=== PATIENT | female | born 1955 | race Caucasian/White ===

== ENCOUNTER 2017-07-24 14:29 | Inpatient (IN) | payer OTHER ==
[~2017-07-24] VITALS: Ht 162.6 cm; Wt 101.8 kg
--- NOTE | 2017-07-24 15:53 | RADIOLOGY REPORT ---
EXAMINATION: CR CHEST CLINICAL INFORMATION: Cough. Shortness of breath. Finished antibiotic treatment. COMPARISON: Chest x-ray dated 08/12/2010. TECHNIQUE: 2 views of the chest were obtained. FINDINGS: The cardiac silhouette is within normal limits in size. The chloe bilaterally appear prominent with thickening of the central airways and streaky perihilar opacities seen, suggestive of reactive airways disease or bronchitis. No focal dense consolidation, effusion or pneumothorax is seen. Moderate size retrocardiac hiatal hernia is noted. Bony structures are unremarkable. IMPRESSION: 1. Findings are consistent with reactive airways disease or bronchitis. No focal pneumonia. 2. Moderate size retrocardiac hiatal hernia.
--- NOTE | 2017-07-24 16:57 | ED DYSPNEA/ASTHMA COMPLAINT ---
History of Present Illness General Chief Complaint: General Adult Stated Complaint: SOB Source: patient Exam Limitations: no limitations Vital Signs & Intake/Output Vital Signs & Intake/Output Vital Signs Date Time Temp Pulse Resp B/P B/P Pulse O2 O2 Flow FiO2 Mean Ox Delivery Rate 07/24 2058 98.6 115 20 117/67 97 Nasal 2.0L Cannula 07/24 1955 99.6 115 20 96/56 95 Nasal 2.0L Cannula 07/24 1823 99.4 120 24 110/70 94 Room Air 07/24 1727 95 Room Air 07/24 1712 98.4 125 20 107/67 94 Room Air 07/24 1434 99.9 123 20 123/80 95 Room Air Allergies Coded Allergies: Penicillins (RASH 07/24/17) Triage Note: PT TO ED C/O WORSENING SOB, URI S/S X 1 MONTH. STATES HAD BRONCHITIS AND WAS ON Z-CHERI. H/O ASTHMA, BEEN USING INHALERS AND NEBS. RA SATS 95%. Triage Nurses Notes Reviewed? yes Onset: Abrupt Duration: week(s): (4), constant, continues in ED, getting worse Timing: multiple episodes today Severity: moderate, severe Activities at Onset: activity Prior Episodes/Possible Cause: no prior episodes Modifying Factors: Worsens With: movement. Associated Symptoms: cough, wheezing LMP (ages 10-50): post menopausal, unknown : No Patient currently breastfeeds: No HPI: 61-year-old female past medical history of asthma presents for evaluation of cough, shortness of breath and wheezing. Patient states that symptoms started about one month ago and been intermittent. She states that she was treated with antibiotic steroids and albuterol without much improvement. Patient reports that symptoms get worse with exertion and improves with rest. She also reports dizziness and lightheadedness on exertion. No syncope no hemoptysis. She does report some intermittent lower extremity edema but no recent surgery recent trauma. No history of blood clots. No fevers. She states that initially she was improving on steroids but her symptoms returned. She denies any chest pain nausea vomiting diarrhea or abdominal pain. (Babak Nina) Past History Travel History Traveled to [place] past 21 day No Medical History Any Pertinent Medical History? see below for history Respiratory: asthma Surgical History Surgical History: non-contributory Psychosocial History What is your primary language Maltese Tobacco Use: Never used ETOH Use: denies use Illicit Drug Use: denies illicit drug use Family History Hx Contributory? No (Babak Nina) Review of Systems Review of Systems Constitutional: Reports: no symptoms. EENTM: Reports: no symptoms. Respiratory: Reports: see HPI, cough, short of breath, wheezing. Cardiovascular: Reports: no symptoms. GI: Reports: no symptoms. Genitourinary: Reports: no symptoms. Musculoskeletal: Reports: no symptoms. Skin: Reports: no symptoms. Neurological/Psychological: Reports: see HPI (DIZZY). Hematologic/Endocrine: Reports: no symptoms. Immunologic/Allergic: Reports: no symptoms. All Other Systems: Reviewed and Negative (Babak Nina) Physical Exam Physical Exam General Appearance: well developed/nourished, no apparent distress, alert, awake Head: atraumatic, normal appearance Eyes: Bilateral: normal appearance, PERRL, EOMI. Ears, Nose, Throat: normal pharynx, normal ENT inspection, hearing grossly normal Neck: normal inspection, supple, full range of motion, NO jvd Respiratory: chest non-tender, no respiratory distress, rhonchi, wheezing Peripheral Pulses: 2+ radial (R), 2+ radial (L) Gastrointestinal: soft, non-tender Rectal: normal exam, normal rectal tone, heme negative stool Extremities: normal range of motion, THE LEFT LOWER EXTREMITY APPEARS SLIGHTLY SWOLLEN COMPARED TO THE RIGHT TENDERNESS OR REDNESS Neurologic/Psych: no motor/sensory deficits, awake, alert, oriented x 3 Skin: intact, normal color, warm/dry Lymphatic: no anterior cervical sera Comments: Rectal exam heme negative stool Core Measures ACS in differential dx? No CVA/TIA Diagnosis No Sepsis Present: No Sepsis Focused Exam Completed? No (Babak Nina) Progress Differential Diagnosis: asthma, AMI, bronchitis, costochondritis, CHF, COPD, musculoskeletal pain, pericarditis, pulmonary embolism, pneumonia, unstable angina Plan of Care: Orders Procedure Date/time Status Heart Healthy Diet 07/25 B Active TROPONIN LEVEL 07/25 0600 Active EKG 07/25 0600 Active TROPONIN LEVEL 07/25 0005 Active EKG 07/25 0005 Active US-EXT BILAT VENOUS DOPPLER 07/24 2045 Active Pathway - chart 07/24 2045 Active House Staff 07/24 2045 Active Patient Data 07/24 2045 Active ED Holding Orders 07/24 2038 Active Admit to inpatient 07/24 2038 Active Vital Signs 07/24 2038 Active Code Status 07/24 2038 Active Patient Data 07/24 2034 Active Add-on Test (ER Only) 07/24 1915 Active EKG 07/24 1915 Active RAPID VIRAL INFLUENZA A 07/24 1741 Complete TROPONIN LEVEL 07/24 1724 Complete PARTIAL THROMBOPLASTIN TIME 07/24 1724 Complete PROTHROMBIN TIME 07/24 1724 Complete B-TYPE NATRIURETIC PEP (BNP) 07/24 1724 Complete D-DIMER 07/24 171 Complete COMPREHENSIVE METABOLIC PANEL 07/24 171 Complete CBC WITHOUT DIFFERENTIAL 07/24 171 Complete VTE Mechanical Prophylaxis 07/24 UNK Active Current Medications Sig/José Miguel Start time Last Medication Dose Stop Time Status Admin Heparin Sodium 25,000 UNIT Q24H 07/24 2014 UNVr 07/24 (Porcine) 2047 (Heparin) Sodium Chloride 500 ML Sodium Chloride 1,000 ML BOLUS ONE 07/24 2014 AC 07/24 (Normal Saline 0.9%) 07/24 Laboratory Tests 07/24/17 1724: Anion Gap 17 H, Estimated GFR > 60, BUN/Creatinine Ratio 10.0, Glucose 126 H, Calcium 9.0, Total Bilirubin 0.5, AST 37 H, ALT 35, Alkaline Phosphatase 86, Troponin I 0.05, Rah-S-Smtgzdmfcxg Pept 4740 H, Total Protein 6.7, Albumin 3.5, Globulin 3.2, Albumin/Globulin Ratio 1.1, PT 16.2 H, INR 1.55 H, APTT 39 H, D -Dimer High Sensitivty 1916 H, CBC w Diff MAN DIFF ORDERED, RBC 4.39, MCV 72.2 L, MCH 22.0 L, MCHC 30.4 L, RDW 17.9 H, MPV 8.6, Gran % 74.0, Lymphocytes % 16.7 L, Monocytes % 8.0, Eosinophils % 0.4, Basophils % 0.9, Absolute Granulocytes 17.7 H, Segmented Neutrophils 68, Band Neutrophils 3, Absolute Lymphocytes 4.0 H, Lymphocytes 22, Monocytes 7, Absolute Monocytes 1.9 H, Absolute Eosinophils 0.1, Absolute Basophils 0.2, Nucleated RBCs 1 H, Platelet Estimate ADEQUATE, Hypochromic-Microcytic 1+, Anisocytosis 1+, Microcytic Cells 1+ Microbiology 07/24 1745 NASOPHARYN: Influenza Virus A & B Rapid Smear - COMP Patient seen and evaluated. She is diffuse wheezing and rhonchi auscultated bilaterally. She was given a DuoNeb and reports feeling better. Chest x-ray is clear. Patient has persistent tachycardia here and is satting at 94 on room air at rest. We'll check basic labs including a d-dimer. She was given a liter normal saline. D-dimer is definitely elevated. CTA ordered. CTA is positive for bilateral pulmonary emboli and possible pulmonary infarct. EKG BNP and troponin ordered. Patient also appears to have slightly swollen left lower extremity when compared to the right. Ultrasound ordered for the morning. Patient will require admission. Heparin bolus and drip ordered. Patient's blood pressure is 96/50 and she remains tachycardic. A second fluid bolus was ordered. She is mentating well. Patient will be admitted to the ICU overnight. Case discussed with Dr. Baltazar she agrees (Tre BULLARD,Babak) 07/24/2017 8:46:55 PM Patient seen and examined at bedside with family. Heart rate 117, blood pressure 96/50. Patient states she's been sick on and off since with diagnosis of asthma and bronchitis status post multiple courses of antibiotics. However in the last several weeks to months she has felt weaker. In the last 2 weeks she has not done much for herself because she feels lightheaded and dizzy when she stands up. No syncope. (Delaney CARLOS,[facility]) Diagnostic Imaging: Viewed by Me: Radiology Read, CT Scan. Discussed w/RAD: Radiology Read, CT Scan. Radiology Impression: PATIENT: EKTA BATES PRESENT AGE: 61 PATIENT ACCOUNT NO: [id number] : 56 LOCATION: [facility] ORDERING PHYSICIAN: Babak BULLARD SERVICE DATE: 07/24/17 EXAM TYPE: CAT - CTA CHEST-PULMONARY EMBOLISM EXAMINATION: CT ANGIOGRAM CHEST WITH AND WITHOUT CONTRAST (CT PULMONARY ANGIOGRAM FOR PE) CLINICAL INFORMATION: Cough. Shortness of breath, dizziness. COMPARISON: Chest radiography earlier today. TECHNIQUE: Prior to contrast administration, noncontrast localization images were obtained. Subsequently, multidetector volumetric imaging was performed from the thoracic inlet to below the diaphragms following the administration of 72 mL Optiray 350 intravenous contrast. No contrast reaction reported. Sagittal, coronal, and MIP oblique sagittal reformatted images were obtained on the CT workstation, uploaded to PACS, and reviewed. Total exam dose-length product 585 mGy-cm. FINDINGS: QUALITY OF STUDY/CONTRAST BOLUS: Satisfactory PULMONARY ARTERIES: Bilateral pulmonary emboli are demonstrated involving each lobe, worst in the bilateral lower lobes. Borderline ectasia of the main pulmonary artery. THORACIC AORTA: No aneurysm or dissection. LUNG: There is a 1.3 cm right upper lobe nodule on axial image 191/518 within internal air bronchogram. Small peripheral subpleural opacities which are [id number] in the right middle lobe and right lower lobe. PLEURA: No pleural effusion or pneumothorax. MEDIASTINUM: The trachea and central airways are patent. No mediastinal adenopathy. Suspect minimal coronary artery calcification. Moderate hiatal hernia. CHEST WALL/AXILLA : No axillary or internal mammary lymphadenopathy. OSSEOUS STRUCTURES: No acute or suspicious osseous abnormality. UPPER ABDOMEN: No acute pulmonary pathology. IMPRESSION: 1. Multifocal bilateral pulmonary embolism. 2. A nonspecific 1.3 cm right upper lobe nodule. Recommend 3 month follow-up chest CT scan for re- evaluation. 3. Hav-[id number] subpleural small opacities in the right middle and lower lobes could represent atelectasis or pulmonary infarct. VTE: Positive. This critical result was discussed with Babak Toledo at 7:15 PM on 07/24/2017 and it was ascertained that the content and urgency of the report was understood at the time of direct communication. DICTATED BY: Jose Thomas MD DATE/TIME DICTATED:07/24/171913 BIOMETRIC SCREENER:DUYEN DATE/TIME TRANSCRIBED:1913 CONFIDENTIAL, DO NOT COPY WITHOUT APPROPRIATE AUTHORIZATION. CXR Impression: PATIENT: EKTA BATES PRESENT AGE: 61 PATIENT ACCOUNT NO: [id number] : 56 LOCATION: [facility] ORDERING PHYSICIAN: Bora Leyva DO SERVICE DATE: 07/24/17 EXAM TYPE: RAD - XRY-CHEST XRAY, TWO VIEWS EXAMINATION: CR CHEST CLINICAL INFORMATION: Cough. Shortness of breath. Finished antibiotic treatment. COMPARISON: Chest x-ray dated 08/12/2010. TECHNIQUE: 2 views of the chest were obtained. FINDINGS: The cardiac silhouette is within normal limits in size. The chloe bilaterally appear prominent with thickening of the central airways and streaky perihilar opacities seen, suggestive of reactive airways disease or bronchitis. No focal dense consolidation, effusion or pneumothorax is seen. Moderate size retrocardiac hiatal hernia is noted. Bony structures are unremarkable. IMPRESSION: 1. Findings are consistent with reactive airways disease or bronchitis. No focal pneumonia. 2. Moderate size retrocardiac hiatal hernia. DICTATED BY: Maxine Goel MD DATE/TIME DICTATED:07/24/171546 BIOMETRIC SCREENER:DUYEN DATE/ TIME TRANSCRIBED:07/24/171546 Initial ED EKG: sinus tachycardia, left axis deviation, borderline R-wave progression anteriorly, borderline T-wave abnormalities (Babak Nina) Departure Departure Condition: Stable Referrals: Vahid Stock DO (PCP/Family) Departure Forms: Customer Survey General Discharge Information Admission Note Spoke With: Arjun Briseno MD Documentation of Exam: Documentation of any treatments & extenuating circumstances including Concerns Regarding Discharge (functional status, medication knowledge or non-compliance, living conditions, etc.) that warrant an admission rather than observation: [ Pulmonology consult, IV heparin, IV fluids, telemetry monitoring, echocardiogram , hypercoagulability workup, serial labs, serial EKGs] (Babak Nina) Departure Disposition: STILL A PATIENT Clinical Impression Primary Impression: Pulmonary embolism PA/[employer]ICE [employer]IDENT [employer] Co-Sign Statement Statement: ED Attending supervision documentation- [X] I saw and evaluated the patient. I have also reviewed all the pertinent lab results and diagnostic results. I agree with the findings and the plan of care as documented in the PA's/[employer]ICE [employer]'s documentation. [X] I have reviewed the ED Record and agree with the PA's/[employer]'s documentation. [] Additions or exceptions (if any) to the PAs/[employer]'s note and plan are summarized below: [] (Delaney CARLOS,[place]) Critical Care Note Critical Care Note Critical Care Time: 30-74 min (Babak Nina)
[2017-07-24 17:30] LABS: ABSOLUTE BASOPHIL COUNT 0.2 /CUMM (0.0-0.2); ABSOLUTE EOSINOPHIL COUNT 0.1 /CUMM (0.0-0.7); ABSOLUTE GRANULOCYTE CT 17.7 /CUMM (1.4-6.5); ABSOLUTE MONOCYTE COUNT 1.9 /CUMM (0.10-0.60); BASOPHIL % 0.9 % (0.0-2.0); EOSINOPHIL % 0.4 % (0-5); HEMATOCRIT 31.7 % (37-47); MEAN CORPUSCULAR HGB CONC 30.4 G/DL (33.0-37.0); MEAN CORPUSCULAR VOLUME 72.2 FL (81.0-99.0); MEAN PLATELET VOLUME 8.6 FL (7.4-10.4); PLATELET COUNT 366 /CUMM (130-400); RBC DISTRIBUTION WIDTH 17.9 % (11.5-14.5); RED BLOOD CELL CT 4.39 /CUMM (4.20-5.40)
[2017-07-24 19:29] LABS: PT 16.2 SEC (9.4-12.5); PTT 39 SEC (25-37)
--- NOTE | 2017-07-24 19:29 | CT SCAN REPORT ---
EXAMINATION: CT ANGIOGRAM CHEST WITH AND WITHOUT CONTRAST (CT PULMONARY ANGIOGRAM FOR PE) CLINICAL INFORMATION: Cough. Shortness of breath, dizziness. COMPARISON: Chest radiography earlier today. TECHNIQUE: Prior to contrast administration, noncontrast localization images were obtained. Subsequently, multidetector volumetric imaging was performed from the thoracic inlet to below the diaphragms following the administration of 72 mL Optiray 350 intravenous contrast. No contrast reaction reported. Sagittal, coronal, and MIP oblique sagittal reformatted images were obtained on the CT workstation, uploaded to PACS, and reviewed. Total exam dose-length product 585 mGy-cm. FINDINGS: QUALITY OF STUDY/CONTRAST BOLUS: Satisfactory PULMONARY ARTERIES: Bilateral pulmonary emboli are demonstrated involving each lobe, worst in the bilateral lower lobes. Borderline ectasia of the main pulmonary artery. THORACIC AORTA: No aneurysm or dissection. LUNG: There is a 1.3 cm right upper lobe nodule on axial image 191/518 within internal air bronchogram. Small peripheral subpleural opacities which are [id number] in the right middle lobe and right lower lobe. PLEURA: No pleural effusion or pneumothorax. MEDIASTINUM: The trachea and central airways are patent. No mediastinal adenopathy. Suspect minimal coronary artery calcification. Moderate hiatal hernia. CHEST WALL/AXILLA: No axillary or internal mammary lymphadenopathy. OSSEOUS STRUCTURES: No acute or suspicious osseous abnormality. UPPER ABDOMEN: No acute pulmonary pathology. IMPRESSION: 1. Multifocal bilateral pulmonary embolism. 2. A nonspecific 1.3 cm right upper lobe nodule. Recommend 3 month follow-up chest CT scan for re-evaluation. 3. Nxf-mekz-[id number] subpleural small opacities in the right middle and lower lobes could represent atelectasis or pulmonary infarct. VTE: Positive. This critical result was discussed with Babak Toledo at 7:15 PM on 07/24/2017 and it was ascertained that the content and urgency of the report was understood at the time of direct communication.
--- NOTE | 2017-07-24 20:41 | History & Physical ---
Kendall Vance MD 07/24/172039: General Information and HPI MD Statement: I have seen and personally examined EKTA BATES and documented this H&P. The patient is a 61 year old F who presented with a patient stated chief complaint of [shortness of breath, cough]. Source of Information: patient, family Exam Limitations: no limitations History of Present Illness: Patient is a 61-year-old female with a PMH of asthma and psoriasis who presents complaining of cough and shortness of breath. Patient states she has had a cough for approximately one month, she was given prednisone taper and azithromycin which initially improved her symptoms however she then progressively got worse. 4-5 days ago she began experiencing significant weakness to the point that she can no longer get out of bed and worsening shortness of breath.. Denies any associated fever, chills, nausea, vomiting. She notes that she has also had leg swelling and pain left greater than right. Her daughter who is a nurse states that she has also had an elevated heart rate and low BP. Patient denies any chest pain, palpitations, lightheadedness, dizziness, loss of consciousness. Allergies/Medications Allergies: Coded Allergies: Penicillins (RASH 07/24/17) Home Med list Cetirizine HCl (Zyrtec) 10 MG TABLET 1 TAB PO DAILY allergy (Reported) Fluticasone/Salmeterol (Advair 250-50 Diskus) 250 MCG-50 MCG/DOSE BLST.W.DEV 1 PUF INH BID asthma (Reported) Ipratropium [place] 0.2 MG/ML (0.02 %) SOLUTION 1 Vial INH/JANEE 4 TIMES/DAY asthma (Reported) Ipratropium/Albuterol Sulfate (Iprat-Albut 0.5-3(2.5) MG/3 Ml) 0.5 MG-3 MG (2.5 MG BASE)/3 ML AMPUL.NEB ASTHMA (Reported) Omeprazole 20 MG TABLET.DR 1 TAB PO DAILY gerd (Reported) Past History Travel History Traveled to [place] past 21 day No Medical History Respiratory: asthma Other Medical Hx: psoriasis Surgical History Surgical History: non-contributory Past Family/Social History Family History Relations & Conditions if any Relation not specified for: *No pertinent family history Psychosocial History Smoking Status: Never Smoked ETOH Use: denies use Illicit Drug Use: denies illicit drug use Review of Systems Review of Systems Constitutional: Reports: malaise, weakness. Denies: chills, diaphoresis, fever. EENTM: Reports: no symptoms. Cardiovascular: Reports: peripheral edema. Denies: chest pain, orthopena, syncope. Respiratory: Reports: cough, short of breath, wheezing. Denies: hemoptysis, orthopnea, sputum production. GI: Reports: no symptoms. Genitourinary: Reports: no symptoms. Musculoskeletal: Reports: no symptoms. Skin: Reports: rash (psoriatic). Neurological/Psychological: Reports: no symptoms. Exam & Diagnostic Data Last 24 Hrs of Vital Signs/I&O Vital Signs Date Time Temp Pulse Resp B/P B/P Pulse O2 O2 Flow FiO2 Mean Ox Delivery Rate 07/24 195 99.6 115 20 96/56 95 Nasal 2.0L Cannula 07/24 1823 99.4 120 24 110/70 94 Room Air 07/24 1727 95 Room Air 07/24 1712 98.4 125 20 107/67 94 Room Air 07/24 1434 99.9 123 20 123/80 95 Room Air Intake & Output 07/24 1600 07/24 0800 07/24 0000 Intake Total Output Total Balance Patient 200 lb Weight Weight Estimated Measurement Method Physical Exam General Appearance Alert, Oriented X3, Cooperative, No Acute Distress Skin Temp/Moisture Exam: Warm/Dry Sepsis Skin Exam (color): Normal for Ethnicity HEENT Atraumatic, PERRLA, EOMI, Mucous Membr. moist/pink Neck Supple, No JVD, No thryomegaly Cardiovascular Regular Rate, Normal S1, Normal S2 Lungs diminished breath sounds, scant wheezing, mild respiratory distress Abdomen Normal Bowel Sounds, Soft, No Tenderness Neurological Normal Speech, Strength at 5/5 X4 Ext, Normal Tone, Sensation Intact, Cranial Nerves 3-12 NL Extremities 2-3+ pitting edema of the LEs L<R Vascular Pulses Symmetrical Sepsis Peripheral Pulse Location: Posterior Tibialis Sepsis Peripheral Pulse Exam: Normal Sepsis Cap Refill Exam: <2 Sec Last 24 Hrs of Labs/Doug: Laboratory Tests 07/24/17 1724: Anion Gap 17 H, Estimated GFR > 60, BUN/Creatinine Ratio 10.0, Glucose 126 H, Calcium 9.0, Total Bilirubin 0.5, AST 37 H, ALT 35, Alkaline Phosphatase 86, Troponin I 0.05, Cxt-V-Jroyenmhedv Pept 4740 H, Total Protein 6.7, Albumin 3.5, Globulin 3.2, Albumin/Globulin Ratio 1.1, PT 16.2 H, INR 1.55 H, APTT 39 H, D -Dimer High Sensitivty 1916 H, CBC w Diff MAN DIFF ORDERED, RBC 4.39, MCV 72.2 L, MCH 22.0 L, MCHC 30.4 L, RDW 17.9 H, MPV 8.6, Gran % 74.0, Lymphocytes % 16.7 L, Monocytes % 8.0, Eosinophils % 0.4, Basophils % 0.9, Absolute Granulocytes 17.7 H, Segmented Neutrophils 68, Band Neutrophils 3, Absolute Lymphocytes 4.0 H, Lymphocytes 22, Monocytes 7, Absolute Monocytes 1.9 H, Absolute Eosinophils 0.1, Absolute Basophils 0.2, Nucleated RBCs 1 H, Platelet Estimate ADEQUATE, Hypochromic-Microcytic 1+, Anisocytosis 1+, Microcytic Cells 1+ Microbiology 07/24 1746 NASOPHARYN: Influenza Virus A & B Rapid Smear - COMP Diagnostic Data EKG Results sinus tachycardia CXR Results 1. Findings are consistent with reactive airways disease or bronchitis. No focal pneumonia. 2. Moderate size retrocardiac hiatal hernia. Other Results CTA CHEST 1. Multifocal bilateral pulmonary embolism. 2. A nonspecific 1.3 cm right upper lobe nodule. Recommend 3 month follow-up chest CT scan for re-evaluation. 3. Zpt-arcq-[id number] subpleural small opacities in the right middle and lower lobes could represent atelectasis or pulmonary infarct. VTE: Positive. Assessment/Plan Assessment: Patient is a 61-year-old female with a PMH of asthma and psoriasis who presents complaining of cough and shortness of breath. Patient's cough had progressed over the course of one month initially improving with azithromycin and prednisone. She began to have progressive shortness of breath and weakness to the point of immobility for the past 4-5 days. She has associated lower extremity swelling and pain left greater than right. Problem list #Bilateral PE #Asthma exacerbation #Incidental pulmonary nodule should be followed up as an outpatient Plan -Admit to ICU -Continuous telemetry monitoring -Echocardiogram to assess for any heart strain - Lower Extremity Doppler ultrasound -IV heparin - Pulmonology consult -TRC/nebs -IV Solu-Medrol 40 mg twice a day -IV azithromycin -Mucinex -DVT prophylaxis IV heparin -CODE STATUS: full code As Ranked By This Provider Problem List: 1. Pulmonary embolism Core Measures/Misc (03/07) Acute Coronary Syndrome ACS Diagnosis: No Congestive Heart Failure Congestive Heart Failure Diagnosis No Cerebrovascular Accident CVA/TIA Diagnosis: No VTE (View Protocol) VTE Risk Factors VTE (Previous) No Mechanical VTE Prophylaxis d/t N/A MechProphylax Ordered No VTE Pharm Prophylaxis d/t NA PharmProphylax ordered Sepsis (View protocol) Sepsis Present: No Arjun Briseno 07/25/17 0421: Attending MD Review Statement Attending Statement Attending MD Statement: examined this patient, discuss w/resident/PA/COLLECT ON DELIVERY CLERK, agreed w/resident/PA/COLLECT ON DELIVERY CLERK, reviewed EMR data (avail), reviewed images, amended to note Attending Assessment/Plan: CC: Worsening shortness of breath PMH: Asthma, psoriasis Patient came to ER for worsening shortness of breath. Patient developed cough 1 month back with upper respiratory symptoms, malaise lethargy, no fever or chills associated with shortness of breath. She went to urgent care where she was treated for bronchitis with oral antibiotics and steroids, she transiently improved. Again symptoms started to worsen around 2 weeks back when she had more cough, without sputum production, postnasal drip, weakness, shortness of breath to the extent that she could not do much and was mostly on the bed. She had an episode of nausea vomiting and diarrhea for 1 day duration which is resolved on its own. A couple of times she noticed nosebleed but no sputum production or hemoptysis. 4-5 days back patient's daughter started to notice worsening of her lower extremity swelling, increased heart rate, lower side blood pressure. Patient's daughter suggested her to go to hospital but patient refused. Progressively her breathing was worse, she was getting leg cramps and she was getting wheezing so she came to ER. She denies any fever, chills, currently any diarrhea, vomiting, urinary symptoms, chest pain, chest tightness, back pain, abdominal pain, presyncopal symptoms or LOC. Patient denies any chronic weight loss, poor appetite, night sweats or any lumps or bumps. Vitals: T max 99.9, heart rate 123, RR 20, blood pressure 123/80 on arrival dropped to 96/56, saturating 95% on 2 L nasal cannula. On exam: Patient in mild respiratory distress, A O 3, cooperative, neck supple, JVD normal, no lymphadenopathy, mucosa moist, no focal neurological deficit, bilateral lower extremity edema +2, no obvious skin rashes or inflammation CVS: S1-S2, RRR. RS: Minimum Wheezing bilaterally, no crackles. Abdomen: Soft, NT, ND , bowel sounds present. Labs: WBC 24.0, hemoglobin 9.6, hematocrit 31.7, platelet 366, sodium 142, potassium 3.4, chloride 97, bicarbonate 28, BUN 8, creatinine 0.8, glucose 126, calcium 9.0, LFT unremarkable, troponin 0.05, proBNP 4740, INR 1.55, d-dimer 1916, influenza negative CXR: 1. Findings are consistent with reactive airways disease or bronchitis. No focal pneumonia. 2. Moderate size retrocardiac hiatal hernia. CTA chest: 1. Multifocal bilateral pulmonary embolism. 2. A nonspecific 1.3 cm right upper lobe nodule. Recommend 3 month follow-up chest CT scan for re-evaluation. 3. Rie-sbin-fflu subpleural small opacities in the right middle and lower lobes could represent atelectasis or pulmonary infarct. ECG: Q3 T3 Assessment and plan 61-year-old female with past medical history significant for asthma, well controlled with inhalation presented in ER for approximately 1 month duration illness which appears to be bronchitis/asthma exacerbation, failed outpatient treatment. Patient was gradually getting worse and more bedbound in last 15 days , noticed bilateral lower extremity swelling, cough pain and worsening of breathing since last 4-5 days. Patient was significantly tachycardic in ER, ECG sinus tachycardia. Given her leg edema, tachycardia and labored breathing, elevated d-dimer CTA was obtained which shows bilateral pulmonary embolism. Even though patient came with normal blood pressure, even with 2 L normal saline boluses her blood pressure trended 95/56, persistently tachycardic. Her CT shows subpleural small capacity, pulmonary infarct could not be ruled out at this point. In this scenario patient would benefit from hourly vital monitoring for any hemodynamic instability, in setting of pulmonary embolism. ProBNP is elevated, no history of heart failure which goes more in favor of cardiac strain. Cause of DVT unclear, probably prolonged immobility with underlying sickness. No B symptoms noted. There is a small nodule right upper lobe which would be followed up outpatient. Guaiac-negative in ER + Bilateral pulmonary embolism + Asthma exacerbation - Admit to ICU - Continuous telemetry monitoring - Every hourly vitals - Continuous pulse ox - Continue heparin drip (side effects discussed) - DVT Doppler - Serial troponin and EKGs - 2-D echocardiogram in a.m. - Pulmonology consult - IV methylprednisolone 40 mg every - IV azithromycin - TRC nebulization with albuterol and ipratropium scheduled and when necessary - Mucinex scheduled twice a day - Continue rest of the home medications - Adequate pain control Carolyn Galvez MD 07/25/17 0424: Resident Review Statement Resident Statement: examined this patient, discussed with planning intern Other Findings: H: Ms Bates is a 61-year-old female past medical history of asthma, psoriasis and GERD who presented to the emergency department with worsening shortness of breath. Patient states that over the last few weeks she has been feeling unwell. Her symptoms started on June 25, after experiencing labored breathing she visited the urgent care and was prescribed a dose of prednisone and azithromycin. She had to revisit the urgent care on July 13 after her symptoms continued to worsen. At this point, the patient also developed a cough. Her cough was productive of yellow sputum. She was started on prednisone and given some breathing treatments, which she states provided minimal relief. She states that she began to feel better. Five days prior to admission she has noted that she has become increasingly lethargic and weak and has been unable to carry out her activities of daily living. She also states that her breathing has become more labored. She endorses a mild fever. She states that she's been unable to move and has been essentially bedbound. She denies any recent travel, does not smoke. Denies any history of any blood disorders. She denies being exposed to any sick contacts. R: She denies any fever, chills, nausea, vomiting. She does also endorse some left leg pain and states that her legs have been increasingly swollen. E: Vitals: T:99.9, CO: 123, RR: 20, BP: 103/60, 95% on NC General Appearance: well developed/nourished, no apparent distress, alert and oriented. Head: atraumatic, normal appearance Eyes: PERRLA Ears, Nose, Throat: hearing grossly normal Neck: supple, full range of motion Respiratory:Chest non-tender, no respiratory distress, diminished breath sounds. Cardiovascular: Tacycardic, no murmurs gallops or rubs. Gastrointestinal: normal bowel sounds, soft, non-tender. Back: normal inspection, normal range of motion Extremities: normal inspection, normal range of motion. Edema 2+ Neurologic/Psych: no motor/sensory deficits, awake, alert, oriented x 3 Skin: warm/dry Family At Bedside. L: WBC 24.0. H&H 9.6 and 31.7. Platelets 366. Sodium 142. Potassium 3.4. BUN 8 Cr: 0.8 Troponin 0.05 I: SERVICE DATE: 07/24/17 EXAM TYPE: RAD - XRY-CHEST XRAY, TWO VIEWS IMPRESSION: 1. Findings are consistent with reactive airways disease or bronchitis. No focal pneumonia. 2. Moderate size retrocardiac hiatal hernia. SERVICE DATE: 07/24/17 EXAM TYPE: CAT - CTA CHEST-PULMONARY EMBOLISM IMPRESSION: 1. Multifocal bilateral pulmonary embolism. 2. A nonspecific 1.3 cm right upper lobe nodule. Recommend 3 month follow-up chest CT scan for re-evaluation. 3. Ehp-hhta-flkf subpleural small opacities in the right middle and lower lobes could represent atelectasis or pulmonary infarct. VTE: Positive. This critical result was discussed with Babak Toledo at 7:15 PM on 07/24/2017 and it was ascertained that the content and urgency of the report was understood at the time of direct communication. A/P Ms Bates is a 61 year old who female was presented to the emergency department complaining of dyspnea. Her dyspnea is the cause by evidence of pulmonary emboli. This is likely due to prolonged immobility vs a hypercoaguble state. #Bilateral PE #Rule out ACS #Incedental RUL Pulmonary Nodule found on Imaging. #History of asthma #History of psoriasis #Hypokalemia Admit to CRCU CRCU consultation in a.m. Pulmonology consultation in a.m. Serial troponins and EKG. Echocardiogram to assess for any evidence of right heart strain. Doppler to rule out DVT. If hemodynamically unstable, may consider TPA (patient would have to be transferred to a higher level care facility). Continue 40 mg of Solu-Medrol. Azithryomycin for anti inflamatory properties and covering atypical infection. Patient is a full code. Diet is heart healthy. DVT prophylaxis by heparin drip.
[2017-07-25] MEDS ORDERED: IPRAT-ALBUT 0.5-3 ML (03:39)
[2017-07-25 04:00] VITALS: BP 114/68
[2017-07-25 04:04] LABS: PTT > 120 SEC (25-37)
--- NOTE | 2017-07-25 04:24 | Admission Certification ---
Admission Certification Certification Statement - As attending physician, I certify that at the time of - admission, based on clinical presentation, severity of - symptoms, need for further diagnostic testing and - therapeutic interventions, and risk of adverse outcomes - without in-hospital treatment, in my clinical assessment, - this patient requires an acute hospital stay for a minimum - of two nights or longer. I have also considered psychsocial - factors such as support system, advanced age, financial - issues, cognitive issues, and failed out-patient treatments, - past re-admission history, safety of patient, and lack of - compliance as applicable. Specific rationale supporting this admission is: Pulmonary embolism, asthma exacerbation
[2017-07-25] MEDS ORDERED: OMEPRAZOLE20 M3 PO (04:51)
[2017-07-25] MEDS ORDERED: ZYRTEC10 M3 PO (04:51)
[2017-07-25] MEDS ORDERED: IPRATROPIU0.2 MG/1 M INH/SOL (04:51)
[2017-07-25] MEDS ORDERED: ADVAIR 250-501 EACH INH (04:52)
[2017-07-25 08:00] VITALS: BP 112/66
--- NOTE | 2017-07-25 08:12 | Cons- CRCU ---
Liliya Cruz 07/25/17 0811: General Information and HPI Consulting Request Date of Consult: 07/25/17 Requested By: Dr Watts Reason for Consult: Pulmonary embolism Source of Information: patient Exam Limitations: no limitations History of Present Illness: Ms Seo is a 61 year old woman w/ a PMHx of Asthama and Psoriasis came in with a chief concern of shortness of breath, cough that started approximately 4 wks ago that worsened in the last two weeks. She was treated w/ antibiotics for a diagnosis of bronchitis with no relief of symptoms, and she remained in bed for most of these two weeks. She also developed pain in her lower extremities over a week, which worsened in the last few days. Continued to have dyspnea, which progressed from dyspnea on exertion to dyspena at rest. Non smoker and non alcoholic. When she was found to have tachycardia, and low blood pressure, whe was recommended to seek medical adviced. When she presented to the ED, she was tachycardic HR 120s and SBP 90s, and was found to have multifocal bilateral pulmonary embolism and deep venous thrombosis extending from the left common femoral vein to the popliteal vein. She was begun in intravenous heparin for anticoaguation, and was admitted to the ICU for monitoring of hemodynamics. No fever, palpitations. No abdominal pain, or dysurea. No history of malignancy, weight loss. Allergies/Medications Allergies: Coded Allergies: Penicillins (RASH 07/24/17) Home Med List: Cetirizine HCl (Zyrtec) 10 MG TABLET 1 TAB PO DAILY allergy (Reported) Fluticasone/Salmeterol (Advair 250-50 Diskus) 250 MCG-50 MCG/DOSE BLST.W.DEV 1 PUF INH BID asthma (Reported) Ipratropium [place] 0.2 MG/ML (0.02 %) SOLUTION 1 Vial INH/JANEE 4 TIMES/DAY asthma (Reported) Ipratropium/Albuterol Sulfate (Iprat-Albut 0.5-3(2.5) MG/3 Ml) 0.5 MG-3 MG (2.5 MG BASE)/3 ML AMPUL.NEB ASTHMA (Reported) Omeprazole 20 MG TABLET. 1 TAB PO DAILY gerd (Reported) Review of Systems Review of Systems Constitutional: Reports: see HPI, fever. EENTM: Denies: visual changes. Cardiovascular: Denies: chest pain, orthopena. Respiratory: Denies: cough. GI: Denies: abdominal pain. Genitourinary: Denies: dysuria. Skin: Denies: change in skin color. Neurological/Psychological: Reports: dementia. Hematologic/Endocrine: Denies: bruising. Past History Travel History Traveled to [place] past 21 day No Medical History Respiratory: asthma Surgical History Surgical History: non-contributory Psychosocial History ETOH Use: denies use Illicit Drug Use: denies illicit drug use Functional Ability ADLs Independent: dressing, eating, toileting, bathing. Ambulation: independent IADLs Unknown: shopping, housework, finances, food prep, telephone, transportation, medication admin. Exam & Diagnostic Data Last 24 Hrs of Vital Signs/I&O Vital Signs Date Time Temp Pulse Resp B/P B/P Pulse O2 O2 Flow FiO2 Mean Ox Delivery Rate 07/25 1850 94 Nasal 2.0L Cannula 07/25 1600 94 Nasal 2.0L Cannula 07/25 1600 97.3 106 27 104/60 94 Nasal 2.0L Cannula / 1400 95 Nasal 2.0L Cannula / 1221 95 Nasal 2.0L Cannula /04 1215 Nasal 2.0L Cannula 07/25 1200 Nasal 2.0L Cannula 07/25 0800 Nasal 2.0L Cannula / 0800 98.0 108 20 112/66 95 Nasal 2.0L Cannula / 0411 96 Nasal 2.0L Cannula / 0400 96 Nasal 2.0L Cannula / 0400 98.9 112 24 114/68 96 Nasal 2.0L Cannula /04 0400 96 Nasal 2.0L Cannula /04 0326 107 20 128/67 97 Nasal 2.0L Cannula /04 0245 105 20 113/69 95 Nasal 2.0L Cannula /04 0147 98.5 101 20 117/72 95 Nasal 2.0L Cannula 02/04 0047 107 20 109/57 974 Nasal 2.0L Cannula / 2347 97.8 109 20 99/58 95 Nasal 2.0L Cannula /03 2307 98.6 106 18 96/52 96 Nasal 2.0L Cannula Intake & Output / 1600 02/04 0800 02/04 0000 Intake Total 1039 260 Output Total 250 420 Balance 789 -160 Intake, IV 439 20 Intake, Oral 600 240 Number 0 Bowel Movements Output, Urine 250 420 Patient 224 lb Weight Weight Bed scale Measurement Method Physical Exam General Appearance: well developed/nourished, no apparent distress, alert, awake Head: atraumatic, normal appearance Eyes: Bilateral: normal appearance, PERRL, EOMI. Ears, Nose, Throat: normal pharynx Neck: normal inspection, supple, full range of motion, no JVD Respiratory: decreased breath sounds, wheezing Cardiovascular: regular rate/rhythm Gastrointestinal: normal bowel sounds, soft, non-tender Extremities: normal inspection, normal capillary refill, normal range of motion, no edema Neurologic/Psych: no motor/sensory deficits, awake, alert, oriented x 3 Cranial Nerves: normal hearing, normal speech, PERRL Reflexes: 4+: knee (R), knee (L). Skin: intact, normal color, warm/dry Lymphatic: adenopathy Last 48 Hrs of Labs/Doug: Laboratory Tests 07/25/17 1755: APTT 68 H, CBC w Diff NO MAN DIFF REQ, RBC 3.69 L, MCV 72.1 L, MCH 21.8 L, MCHC 30.3 L, RDW 18.1 H, MPV 9.6, Gran % 91.5 H, Lymphocytes % 6.4 L, Monocytes % 2.1, Eosinophils % 0, Basophils % 0, Absolute Granulocytes 18.6 H, Absolute Lymphocytes 1.3, Absolute Monocytes 0.4, Absolute Eosinophils 0, Absolute Basophils 0 07/25/17 1025: APTT 47 H 07/25/17 0745: Anion Gap 13, Estimated GFR > 60, Glucose 113 H, Calcium 8.3 L, Phosphorus 2.5 , Magnesium 2.0, Total Bilirubin 0.3, AST 49 H, ALT 33, Albumin 2.8 L, CBC w Diff NO MAN DIFF REQ, RBC 3.49 L, MCV 71.8 L, MCH 22.5 L, MCHC 31.3 L, RDW 18.2 H, MPV 10.0, Gran % 82.9 H, Lymphocytes % 10.4 L, Monocytes % 6.2, Eosinophils % 0.1, Basophils % 0.4, Absolute Granulocytes 14.6 H, Absolute Lymphocytes 1.8, Absolute Monocytes 1.1 H, Absolute Eosinophils 0, Absolute Basophils 0.1 07/25/17 0610: Troponin I 0.02 07/25/17 0325: APTT > 120 *H 07/25/17 0015: Troponin I 0.03 07/24/17 1724: Anion Gap 17 H, Estimated GFR > 60, BUN/Creatinine Ratio 10.0, Glucose 126 H, Calcium 9.0, Total Bilirubin 0.5, AST 37 H, ALT 35, Alkaline Phosphatase 86, Troponin I 0.05, Pkr-B-Bmcuxmucopn Pept 4740 H, Total Protein 6.7, Albumin 3.5, Globulin 3.2, Albumin/Globulin Ratio 1.1, PT 16.2 H, INR 1.55 H, APTT 39 H, D -Dimer High Sensitivty 1916 H, CBC w Diff MAN DIFF ORDERED, RBC 4.39, MCV 72.2 L, MCH 22.0 L, MCHC 30.4 L, RDW 17.9 H, MPV 8.6, Gran % 74.0, Lymphocytes % 16.7 L, Monocytes % 8.0, Eosinophils % 0.4, Basophils % 0.9, Absolute Granulocytes 17.7 H, Segmented Neutrophils 68, Band Neutrophils 3, Absolute Lymphocytes 4.0 H, Lymphocytes 22, Monocytes 7, Absolute Monocytes 1.9 H, Absolute Eosinophils 0.1, Absolute Basophils 0.2, Nucleated RBCs 1 H, Platelet Estimate ADEQUATE, Hypochromic-Microcytic 1+, Anisocytosis 1+, Microcytic Cells 1+ Microbiology 07/24 1745 NASOPHARYN: Influenza Virus A & B Rapid Smear - COMP Diagnostic Data EKG Results NSR Normal axis No STTWI CXR Results 1. Findings are consistent with reactive airways disease or bronchitis. No focal pneumonia. 2. Moderate size retrocardiac hiatal hernia. Other Results CTA chest: 1. Multifocal bilateral pulmonary embolism. 2. A nonspecific 1.3 cm right upper lobe nodule. Recommend 3 month follow-up chest CT scan for re-evaluation. 3. Ezz-ogig-ovan subpleural small opacities in the right middle and lower lobes could represent atelectasis or pulmonary infarct. VTE: Positive. Assessment/Plan Impression/Plan: Ms Seo is a 61 year old woman w/ a PMHx of Asthama and Psoriasis came in with a chief concern of shortness of breath, cough that started approximately 4 wks ago, who developed pain in her lower extremities over a week, in the last few days; continued to have dyspnea, which progressed from dyspnea on exertion to dyspena at rest likley secondary to bilateral pulmonary embolism and lower extremity deep venous thrombus. At the time of admission, vitals-temp 99.9, pulse rate 123, respiration 20, blood pressure 123/80, pulse ox 95% on room air. Pertinent lab findings: WBC 20 4K, platelets 366 Sodium 142, potassium 3.4, anion gap 17 BUN 8, creatinine 0.8 AST 37, ALT 35, alkaline phosphatase 86, Troponin 0.05, 0.03, 0.02 ProBNP 4740 Chest x-ray did not reveal any consolidation suggestive of pneumonia. CTA chest revealed bilateral pulmonary emboli involving each lobe worst in the bilateral lower lobes. There is also borderline ectasia of the main pulmonary artery. An incidental finding of 1.3 cm right upper lobe nodule was seen. Lower extremity ultrasound revealed deep venous thrombosis extending from left common femoral vein to popliteal vein. Etiology in her case, it is unclear. She developed bilateral PE and extensive DVT in left lower extremity. She has an incidental finding of pulmonary nodule, raising the suspicion for malignancy. However, does not smoke or has any family history. Other causes causing thrombophilia are to be ruled out. She is currently on intravenous anticoagulation-heparin, and would defer the decision to workup the patient as an outpatient. For the time being, she has to be treated with antivirals for at least 3 months, with a reevaluation to continue the anticoagulant. In regards to her further management of pulmonary embolus, her blood pressure needs to be monitored closely for further decompensation. Other factors contributing to acute dyspnea, could be asthma exacerbation. Plan: #1 respiratory: She is currently on 2 L nasal cannula, with oxygen saturation above 92%. Currently does not seem to be in any respiratory distress. That said, she has to be monitored closely for any decompensation in the ICU. For asthma, she has to be treated with short acting beta agonists, which unfortunately would increase her heart rate. #2 infectious: She has an incidental finding of leukocytosis, which seems largely reactive due to de-margination. At this time no antibiotics are indicated. #3 circulatory: Blood pressure seems to be stable at this time. In any event of decreased blood pressure, or change in hemodynamics, she should be transferred to a higher level of care for administration of thrombolytics. At this time, follow echocardiogram to see if she has any right heart strain, and would need emergent thrombolytics. Dr. Kearns has been consulted for advice. #4 metabolic: She has adequate renal function, and electrolytes repleted accordingly. #5 hematologic: She has been diagnosed with bilateral pulmonary embolism, and DVT. Etiology is unclear. Continue intravenous IV heparin at this time, and transition to a DOAC in the am. If she requires thrombolytics, it has to be done emergently at [facility]. As per Dr. Kearns, if she chooses to electively get catheter targeted thrombolytics, it has to be done as an elective procedure at [facility]. Housekeeping: #1 DVT prophylaxis-intravenous heparin #2 GI prophylaxis-Protonix #3 diet-heart healthy diet #4 "status-full code #5 line-peripheral line #6 ventilator-none #7 [place] catheter-none. Problem List: 1. Pulmonary embolism Consult Acknowledgment - Thank you for your consult request. Hitesh Queen MD 07/25/17 3481: Assessment/Plan Other Findings/Comments: Hitesh Fitch M.D. have examined this patient, reviewed available EMR data, personally reviewed images, discussed with resident/PA/PERIOPERATIVE NURSE, discussed management plan with housestaff and nursing staff, discussed managment plan all of healthcare providers, discussed management plan with patient and/or family, agreed with resident/PA/PERIOPERATIVE NURSE. The past history and parts of the chart have been autopopulated. Impression 61 year old woman * admitted to the ICU secondary to hemodynamic instability secondary to VTE -DVT extending Left CFV to the popliteal vein -noncompressible thrombus proximal left greater saphenous vein -multifocal bilateral pulmonary emboli * 1.3cm RUL nodule - unclear etiology - will require follow up * asthma exacerbation triggered by acute illness * leukocytosis Plan -ECHO -vascular surgery consultation - to consider IVC filter - significant clot burden in both pulmonary and lower extremity vessels -cardiology consultation to expedite ECHO -BNP elevated -post discharge will require follow up for 1.3cm RUL nodule -TRC/Nebs -continue solumedrol -pt on Advair at home -given leukocytosis cont zithromax - however likely inflammatory -sputum cx -heparin gtt -hematology consultation routine DVT prophylaxis at all times TTS 40 min Consult Acknowledgment - Thank you for your consult request.
[2017-07-25 08:56] LABS: ABSOLUTE BASOPHIL COUNT 0.1 /CUMM (0.0-0.2); ABSOLUTE EOSINOPHIL COUNT 0 /CUMM (0.0-0.7); ABSOLUTE GRANULOCYTE CT 14.6 /CUMM (1.4-6.5); ABSOLUTE LYMPH COUNT 1.8 /CUMM (1.2-3.4); ABSOLUTE MONOCYTE COUNT 1.1 /CUMM (0.10-0.60); BASOPHIL % 0.4 % (0.0-2.0); EOSINOPHIL % 0.1 % (0-5); GRANULOCYTE % 82.9 % (42.2-75.2); MEAN CORPUSCULAR HGB 22.5 PG (27.0-31.0); MEAN CORPUSCULAR HGB CONC 31.3 G/DL (33.0-37.0); MEAN CORPUSCULAR VOLUME 71.8 FL (81.0-99.0); PLATELET COUNT 257 /CUMM (130-400); RBC DISTRIBUTION WIDTH 18.2 % (11.5-14.5); RED BLOOD CELL CT 3.49 /CUMM (4.20-5.40); WHITE BLOOD CELL COUNT 17.6 /CUMM (4.8-10.8)
--- NOTE | 2017-07-25 09:27 | Event Note ---
Event Note Event Note: Received a phone call from Dr. Joseph to discuss the result of US LE. She had LLE DVT. Informed the pt, and discussed w/ the attending physician.
--- NOTE | 2017-07-25 09:30 | ULTRASOUND REPORT ---
EXAMINATION: US TRIPLEX OF LOWER EXTREMITIES, BILATERAL CLINICAL INFORMATION: Bilateral lower extremity swelling COMPARISON: None. TECHNIQUE: Color-flow triplex imaging with spectral analysis and compression Doppler were performed on the lower extremities. FINDINGS: The right common femoral vein, femoral vein, proximal greater saphenous vein, profunda femoral vein, popliteal vein and visualized calf veins are compressible and patent. There is noncompressible deep venous thrombosis extending from the left common femoral vein to the popliteal vein. The left calf veins are not visualized. There is noncompressible thrombus within the proximal left greater saphenous vein. There is no Lopez's cyst. IMPRESSION: 1. There is deep venous thrombosis extending from the left common femoral vein to the popliteal vein. The left calf veins are poorly visualized. 2. There is noncompressible thrombus within the proximal left greater saphenous vein. 3. No right lower extremity deep venous thrombosis is seen. This critical result was discussed with Dr. Cruz at 9:20 AM on 07/25/2017, and it was ascertained that the content and urgency of this report was understood at the time of direct communication.
[2017-07-25 11:02] LABS: PTT 47 SEC (25-37)
--- NOTE | 2017-07-25 12:05 | Event Note ---
Event Note Event Note: Discussed w/ Dr Kearns about the possible tPA. Plan is to check the echocardiogram, and if it shows right heart starin, ventricular collapse, and/or increased PA pressures would have to transfer her to a higher center of care. Await the echo read. After the Echocardiogram was read by Dr Hucthins, called Dr. Kearns to discuss the results, and plan further. Echocardiogram also showed Moderately enlarged right ventricle with decreased contractility and Moderate to severe pulmonary hypertension. Since she has stable hemodynamics, and doesnt have a saddle embolus would be reasonable to monitor the pt in the ICU, and would require thrombolytics if she is hemodynamically unstable. She should go to [place] for thrombolytics. Discussed w/ Dr Kearns about a possible IVC filter placemet but he was of the opinion that this is a weak indication for IVC filter placement, but would consider catheter directed thrombolytic in her, if its not emergent. Informed Dr. Queen.
--- NOTE | 2017-07-25 12:26 | Cons- Vascular Surgery ---
General Information and HPI Consulting Request Date of Consult: 07/25/17 Requested By: Arjun Briseno MD Reason for Consult: B/L PE, DVT Source of Information: patient History of Present Illness: This is a 61 year-old female with a history of asthma who was admitted to the ICU yesterday with worsening shortness of breath and left leg swelling. She was found to have bilateral pulmonary emboli on CTA and a DVT of the left lower extremity extending from CFV to the popliteal vein on ultrasound. Patient states she developed a cough one month ago with assoicated shortness of breath and malasie. She was evaluated at an urgent care center and provided with a 10 day course z-pack, which she completed. However, her symptoms worsened and again she returned to the urgent care center and was provided with prednisone for worsening asthma. Since Wednesday, she state she has been very weak, decreased immobility and was requiring assistance with ambulation. In addition, her daughter noticed increased left leg swelling, increased heart rate and low blood pressure. Patient states she had a mammography last year which was normal and reports she has never had a colonoscopy. She denies any fever, chills, nausea, vomiting, chest pain, calf pain, leg swelling, lightheadedness or dizziness Allergies/Medications Allergies: Coded Allergies: Penicillins (RASH 07/24/17) Home Med List: Cetirizine HCl (Zyrtec) 10 MG TABLET 1 TAB PO DAILY allergy (Reported) Fluticasone/Salmeterol (Advair 250-50 Diskus) 250 MCG-50 MCG/DOSE BLST.W.DEV 1 PUF INH BID asthma (Reported) Ipratropium [place] 0.2 MG/ML (0.02 %) SOLUTION 1 Vial INH/JANEE 4 TIMES/DAY asthma (Reported) Ipratropium/Albuterol Sulfate (Iprat-Albut 0.5-3(2.5) MG/3 Ml) 0.5 MG-3 MG (2.5 MG BASE)/3 ML AMPUL.NEB ASTHMA (Reported) Omeprazole 20 MG TABLET.DR 1 TAB PO DAILY gerd (Reported) Current Medications: Current Medications Sig/José Miguel Start time Last Medication Dose Route Stop Time Status Admin Albuterol Sulfate 3 ML BID 07/25 1145 AC 07/25 INH 1141 Albuterol Sulfate 3 ML ONCE ONE 07/24 1700 DC 02 INH 07/24 1701 1704 Azithromycin 500 MG DAILY 07/25 1000 AC 07/25 Dextrose/Water 250 ML IV 1017 Budesonide/ 2 PUF BID 07/25 1000 AC 07/25 Formoterol Fumarate INH 1018 Guaifenesin 600 MG Q12 07/25 1000 AC 07/25 PO 1018 Heparin Sodium 0 .STK-MED ONE 07/24 2040 DC (Porcine) .ROUTE Heparin Sodium 5,000 UNIT ONCE ONE 07/24 2014 DC 07/24 (Porcine) IV 07/24 2016 204 Heparin Sodium 25,000 UNIT Q24H 07/24 2014 AC 07/24 (Porcine) IV 204 Sodium Chloride 500 ML Influenza Virus 0.5 ML ONCE ONE 07/25 0830 DC Vaccine IM 07/25 0831 Ipratropium [place] 2.5 ML BID 07/25 1142 AC 07/25 INH 1142 Ipratropium [place] 2.5 ML ONCE PRN 07/25 0500 DC INH Ipratropium [place] 2.5 ML ONCE ONE 07/24 1700 DC 07/24 INH 07/24 1701 1704 Methylprednisolone 40 MG Q12 07/25 1000 AC 07/25 IV 1019 Omeprazole 20 MG 2200 07/25 2200 AC PO Omeprazole 20 MG DAILY AC 07/25 0700 DC PO Potassium Chloride 40 MEQ ONCE ONE 07/25 0945 DC 07/25 PO 07/25 0946 1016 Prednisone 0 .STK-MED ONE 07/24 1704 DC PO Prednisone 60 MG ONCE ONE 07/24 1700 DC / PO 07/24 1701 1702 Sodium Chloride 1,000 ML BOLUS ONE 07/24 2315 DC 07/24 IV 07/25 0114 2325 Sodium Chloride 1,000 ML BOLUS ONE 07/24 2014 DC 03 IV / 2114 2048 Sodium Chloride 1,000 ML BOLUS ONE 07/24 1715 DC 07/24 IV / 1814 1725 Past History Medical History Blood Transfusion Hx: No Neurological: NONE EENT: NONE Cardiovascular: NONE Respiratory: asthma Gastrointestinal: NONE Hepatic: NONE Renal: NONE Musculoskeletal: NONE Psychiatric: NONE Endocrine: NONE Blood Disorders: NONE Cancer(s): NONE 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 , Age 62; Cause: [place] (myocardial infarction). MOTHER (HX OF COPD ON O2). , Age 76; Cause: Breast cancer. Psychosocial History Where Do You Live? Home Smoking Status: Never Smoked ETOH Use: denies use Illicit Drug Use: denies illicit drug use Employment History Retired? yes Review of Systems Review of Systems: Constitutional: Reports: See HPI. EENTM: Reports: no symptoms. Cardiovascular: Reports: See HPI. Respiratory: Reports: See HPI. GI: Reports: no symptoms. Genitourinary: Reports: no symptoms. Musculoskeletal: Reports: no symptoms. Skin: Reports: no symptoms. Neurological/Psychological: Reports: no symptoms. Exam & Diagnostic Data Vital Signs and I&O Vital Signs Date Time Temp Pulse Resp B/P B/P Pulse O2 O2 Flow FiO2 Mean Ox Delivery Rate 07/25 0800 Nasal 2.0L Cannula 07/25 0800 98.0 108 20 112/66 95 Nasal 2.0L Cannula 07/25 0411 96 Nasal 2.0L Cannula 07/25 0400 96 Nasal 2.0L Cannula 07/25 0400 98.9 112 24 114/68 96 Nasal 2.0L Cannula / 0400 96 Nasal 2.0L Cannula / 0326 107 20 128/67 97 Nasal 2.0L Cannula / 0245 105 20 113/69 95 Nasal 2.0L Cannula / 0147 98.5 101 20 117/72 95 Nasal 2.0L Cannula / 0047 107 20 109/57 974 Nasal 2.0L Cannula 07/24 2347 97.8 109 20 99/58 95 Nasal 2.0L Cannula /03 2307 98.6 106 18 96/52 96 Nasal 2.0L Cannula / 2059 98.6 115 20 117/67 97 Nasal 2.0L Cannula / 1956 99.6 115 20 96/56 95 Nasal 2.0L Cannula / 1823 99.4 120 24 110/70 94 Room Air 02/ 1727 95 Room Air / 1712 98.4 125 20 107/67 94 Room Air / 1434 99.9 123 20 123/80 95 Room Air Intake & Output 07/25 1600 07/25 0800 07/25 0000 07/24 1600 07/24 0800 07/24 0000 Intake Total 260 Output Total 420 Balance -160 Intake, IV 20 Intake, Oral 240 Number 0 Bowel Movements Output, Urine 420 Patient 224 lb 200 lb Weight Weight Bed scale Estimated Measurement Method Physical Exam: General: Resting comfortably in ICU with 2 L oxygen via nc, awake and alert in NAD Cardiac: S1S2 noted, tachycardiac Lungs: Rair inspiratory effort, CTAB Extremities: Alps in place, no significant edema or calf tenderness B/L, moves all extremities, motor and sensory intact, palpable DP,PT and popliteal pulses B /L Skin: warm, nondiaphoretic Last 24 Hours of Labs: Laboratory Tests 07/25 07/25 07/25 07/25 1025 0745 0610 0325 Chemistry Sodium (137 - 145 mmol/L) 141 Potassium (3.5 - 5.1 mmol/L) 3.4 L Chloride (98 - 107 mmol/L) 104 Carbon Dioxide (22 - 30 mmol/L) 25 Anion Gap (5 - 16) 13 BUN (7 - 17 mg/dL) 7 Creatinine (0.5 - 1.0 mg/dL) 0.6 Estimated GFR (>60 ml/min) > 60 Glucose (65 - 99 mg/dL) 113 H Calcium (8.4 - 10.2 mg/dL) 8.3 L Phosphorus (2.5 - 4.5 mg/dL) 2.5 Magnesium (1.6 - 2.3 mg/dL) 2.0 Total Bilirubin (0.2 - 1.3 mg/dL) 0.3 AST (14 - 36 U/L) 49 H ALT (9 - 52 U/L) 33 Troponin I (< 0.11 ng/ml) 0.02 Albumin (3.5 - 5.0 g/dL) 2.8 L Coagulation APTT (25 - 37 SEC) 47 H > 120 *H Hematology CBC w Diff NO MAN DIFF REQ WBC (4.8 - 10.8 /CUMM) 17.6 H RBC (4.20 - 5.40 /CUMM) 3.49 L Hgb (12.0 - 16.0 G/DL) 7.8 L Hct (37 - 47 %) 25.0 L MCV (81.0 - 99.0 FL) 71.8 L MCH (27.0 - 31.0 PG) 22.5 L MCHC (33.0 - 37.0 G/DL) 31.3 L RDW (11.5 - 14.5 %) 18.2 H Plt Count (130 - 400 /CUMM) 257 MPV (7.4 - 10.4 FL) 10.0 Gran % (42.2 - 75.2 %) 82.9 H Lymphocytes % (20.5 - 51.1 %) 10.4 L Monocytes % (1.7 - 9.3 %) 6.2 Eosinophils % (0 - 5 %) 0.1 Basophils % (0.0 - 2.0 %) 0.4 Absolute Granulocytes (1.4 - 6.5 /CUMM) 14.6 H Absolute Lymphocytes (1.2 - 3.4 /CUMM) 1.8 Absolute Monocytes (0.10 - 0.60 /CUMM) 1.1 H Absolute Eosinophils (0.0 - 0.7 /CUMM) 0 Absolute Basophils (0.0 - 0.2 /CUMM) 0.1 07/25 07/24 0015 1724 Chemistry Sodium (137 - 145 mmol/L) 142 Potassium (3.5 - 5.1 mmol/L) 3.4 L Chloride (98 - 107 mmol/L) 97 L Carbon Dioxide (22 - 30 mmol/L) 28 Anion Gap (5 - 16) 17 H BUN (7 - 17 mg/dL) 8 Creatinine (0.5 - 1.0 mg/dL) 0.8 Estimated GFR (>60 ml/min) > 60 BUN/Creatinine Ratio (7 - 25 %) 10.0 Glucose (65 - 99 mg/dL) 126 H Calcium (8.4 - 10.2 mg/dL) 9.0 Total Bilirubin (0.2 - 1.3 mg/dL) 0.5 AST (14 - 36 U/L) 37 H ALT (9 - 52 U/L) 35 Alkaline Phosphatase (<127 U/L) 86 Troponin I (< 0.11 ng/ml) 0.03 0.05 Ora-H-Fomamgtznxd Pept (<125 pg/mL) 4740 H Total Protein (6.3 - 8.2 g/dL) 6.7 Albumin (3.5 - 5.0 g/dL) 3.5 Globulin (1.9 - 4.2 gm/dL) 3.2 Albumin/Globulin Ratio (1.1 - 2.2 %) 1.1 Coagulation PT (9.4 - 12.5 SEC) 16.2 H INR (0.90 - 1.19) 1.55 H APTT (25 - 37 SEC) 39 H D-Dimer High Sensitivty (0 - 243 ng/ml) 1916 H Hematology CBC w Diff MAN DIFF ORDERED WBC (4.8 - 10.8 /CUMM) 24.0 H RBC (4.20 - 5.40 /CUMM) 4.39 Hgb (12.0 - 16.0 G/DL) 9.6 L Hct (37 - 47 %) 31.7 L MCV (81.0 - 99.0 FL) 72.2 L MCH (27.0 - 31.0 PG) 22.0 L MCHC (33.0 - 37.0 G/DL) 30.4 L RDW (11.5 - 14.5 %) 17.9 H Plt Count (130 - 400 /CUMM) 366 MPV (7.4 - 10.4 FL) 8.6 Gran % (42.2 - 75.2 %) 74.0 Lymphocytes % (20.5 - 51.1 %) 16.7 L Monocytes % (1.7 - 9.3 %) 8.0 Eosinophils % (0 - 5 %) 0.4 Basophils % (0.0 - 2.0 %) 0.9 Absolute Granulocytes (1.4 - 6.5 /CUMM) 17.7 H Segmented Neutrophils (42.2 - 75.2 %) 68 Band Neutrophils (0.0 - 5.0 %) 3 Absolute Lymphocytes (1.2 - 3.4 /CUMM) 4.0 H Lymphocytes (20.5 - 51.1 %) 22 Monocytes (1.7 - 9.3 %) 7 Absolute Monocytes (0.10 - 0.60 /CUMM) 1.9 H Absolute Eosinophils (0.0 - 0.7 /CUMM) 0.1 Absolute Basophils (0.0 - 0.2 /CUMM) 0.2 Nucleated RBCs (0.0 - 0.0 /100WBC) 1 H Platelet Estimate (ADEQUATE) ADEQUATE Hypochromic-Microcytic 1+ Anisocytosis 1+ Microcytic Cells 1+ Imaging Results: SERVICE DATE: 07/24/17 EXAM TYPE: RAD - XRY-CHEST XRAY, TWO VIEWS EXAMINATION: CR CHEST CLINICAL INFORMATION: Cough. Shortness of breath. Finished antibiotic treatment. COMPARISON: Chest x-ray dated 08/12/2010. TECHNIQUE: 2 views of the chest were obtained. FINDINGS: The cardiac silhouette is within normal limits in size. The chloe bilaterally appear prominent with thickening of the central airways and streaky perihilar opacities seen, suggestive of reactive airways disease or bronchitis. No focal dense consolidation, effusion or pneumothorax is seen. Moderate size retrocardiac hiatal hernia is noted. Bony structures are unremarkable. IMPRESSION: 1. Findings are consistent with reactive airways disease or bronchitis. No focal pneumonia. 2. Moderate size retrocardiac hiatal hernia. SERVICE DATE: 07/24/17 EXAM TYPE: CAT - CTA CHEST-PULMONARY EMBOLISM EXAMINATION: CT ANGIOGRAM CHEST WITH AND WITHOUT CONTRAST (CT PULMONARY ANGIOGRAM FOR PE) CLINICAL INFORMATION: Cough. Shortness of breath, dizziness. COMPARISON: Chest radiography earlier today. TECHNIQUE: Prior to contrast administration, noncontrast localization images were obtained. Subsequently, multidetector volumetric imaging was performed from the thoracic inlet to below the diaphragms following the administration of 72 mL Optiray 350 intravenous contrast. No contrast reaction reported. Sagittal, coronal, and MIP oblique sagittal reformatted images were obtained on the CT workstation, uploaded to PACS, and reviewed. Total exam dose-length product 585 mGy-cm. FINDINGS: QUALITY OF STUDY/CONTRAST BOLUS: Satisfactory PULMONARY ARTERIES: Bilateral pulmonary emboli are demonstrated involving each lobe, worst in the bilateral lower lobes. Borderline ectasia of the main pulmonary artery. THORACIC AORTA: No aneurysm or dissection. LUNG: There is a 1.3 cm right upper lobe nodule on axial image 191/518 within internal air bronchogram. Small peripheral subpleural opacities which are [id number] in the right middle lobe and right lower lobe. PLEURA: No pleural effusion or pneumothorax. MEDIASTINUM: The trachea and central airways are patent. No mediastinal adenopathy. Suspect minimal coronary artery calcification. Moderate hiatal hernia. CHEST WALL/AXILLA: No axillary or internal mammary lymphadenopathy. OSSEOUS STRUCTURES: No acute or suspicious osseous abnormality. UPPER ABDOMEN: No acute pulmonary pathology. IMPRESSION: 1. Multifocal bilateral pulmonary embolism. 2. A nonspecific 1.3 cm right upper lobe nodule. Recommend 3 month follow-up chest CT scan for re-evaluation. 3. [id number]-[id number] subpleural small opacities in the right middle and lower lobes could represent atelectasis or pulmonary infarct. VTE: Positive. This critical result was discussed with Babak Toledo at 7:15 PM on 07/24/2017 and it was ascertained that the content and urgency of the report was understood at the time of direct communication. SERVICE DATE: 07/24/17 EXAM TYPE: US - US-EXT BILAT VENOUS DOPPLER EXAMINATION: US TRIPLEX OF LOWER EXTREMITIES, BILATERAL CLINICAL INFORMATION: Bilateral lower extremity swelling COMPARISON: None. TECHNIQUE: Color-flow triplex imaging with spectral analysis and compression Doppler were performed on the lower extremities. FINDINGS: The right common femoral vein, femoral vein, proximal greater saphenous vein, profunda femoral vein, popliteal vein and visualized calf veins are compressible and patent. There is noncompressible deep venous thrombosis extending from the left common femoral vein to the popliteal vein. The left calf veins are not visualized. There is noncompressible thrombus within the proximal left greater saphenous vein. There is no Lopez's cyst. IMPRESSION: 1. There is deep venous thrombosis extending from the left common femoral vein to the popliteal vein. The left calf veins are poorly visualized. 2. There is noncompressible thrombus within the proximal left greater saphenous vein. 3. No right lower extremity deep venous thrombosis is seen. This critical result was discussed with Dr. Cruz at 9:20 AM on 07/25/2017, and it was ascertained that the content and urgency of this report was understood at the time of direct communication. Assessment/Plan Assessment/Plan This is a 61 year-old female with a history of asthma who presents with worsening shortness of breath and left lower extremitiy swelling found on imaging to have multifocal bilateral pulmonary embolism and a deep venous thrombosis extending from the left common femoral vein to the popliteal vein likely due to immobility verses underlying malignancy. Continue heparin drip Continue ICU level of care Follow up echo If patient becomes hemodynamically unstable or echo shows severe cardiac dysfunction, she should be transferred to [facility] for higher level of care management and intervention Outpatient follow up for right upper lobe pulmonary nodule Discussed with Dr. Kearns who is in agreement Consult Acknowledgment - Thank you for your consult request.
--- NOTE | 2017-07-25 14:20 | PN- Vascular Surgery ---
Surgical Brief Attending Note Brief Attending Note: Pt seen and examined. Agree with PA consult assessment. At this time her L leg is not markedly swollen. There are palpable DP pulses bilaterally. CTA reviewed - mutliple scattered PEs bilaterally. The Main PA and trunks appear widely patent. Awaiting ECHO results. She is hemodynamically stable at this time with SBP in the 110s and HR in 105- 115. Part of the tachycardia may be due to bronchodilators as well. A/P: Recommned IV heparin with transtion to DOAC. If there is severe cardiac dysfunction by ECHO, consider transfer to [facility] or [facility] for Pulmonary thrombolysis, though she appears confortable at this time. D/C L compression sleeve on leg for now, IV heparin adequate for DVT/PE and large thrombus burden in L leg. We will sign off, call with questions.
--- NOTE | 2017-07-25 14:37 | ECHOCARDIOGRAM REPORT ---
EKTA BATES Age: 61 : 1955 Gender: F Exam Date: 07/25/2017 08:17 Exam Location: [facility] Ht (in): 64 Wt (lb): 200 BSA: 2.06 BP: 128 / 67 Ordering Physician: Carolyn Galvez MD Referring Physician: Carolyn Galvez MD Technologist: Nia Medrano [facility] Room Number: 102 Indications: HYPOTENSION Rhythm: Sinus Technical Quality: fair FINDINGS Left Ventricle Normal left ventricular size, wall thickness and systolic function with no obvious regional wall motion abnormalities. Diastolic filling pattern is consistent with impaired LV relaxation. The ejection fraction is visually estimated at 70%. Right Ventricle The right ventricle is moderately enlarged with decreased contractility. Right Atrium The right atrium is normal in size. Left Atrium The left atrium is normal in size. The interatrial septum is intact. Mitral Valve The mitral valve is normal in structure and function. There is mild mitral regurgitation. Aortic Valve Structurally normal aortic valve without significant sclerosis or stenosis. There is no aortic regurgitation. Tricuspid Valve The tricuspid valve is normal in structure and function. There is mild tricuspid regurgitation. Pulmonary artery systolic pressure is moderate to severely elevated to 61mmHg. Pulmonic Valve Structurally normal pulmonic valve. There is trace pulmonic regurgitation. Pericardium Normal pericardium with small effusion. No pleural effusion. Great Vessels Normal aortic root dimension. The aortic arch and great vessels are well seen and are normal. CONCLUSIONS 1. Normal EF of 70% with impaired LV relaxation. 2. Moderately enlarged right ventricle with decreased contractility. 3. Moderate to severe pulmonary hypertension. 4. Mild mitral regurgitation. 5. Mild tricuspid regurgitation. 6. Trace pulmonic regurgitation. 7. Small pericardial effusion. Angel Hutchins M.D. (Electronically Signed) Final Date: 25 July 2017 14:37 MEASUREMENTS (Male / Female) Normal Values 2D ECHO LV Diastolic Diameter PLAX 3.3 cm 4.2 - 5.9 / 3.9 - 5.3 cm LV Systolic Diameter PLAX 1.9 cm 2.1 - 4.0 cm LV Fractional Shortening PLAX 42.4 % 25 - 46 % LV Ejection Fraction 2D Teich 74.7 % IVS Diastolic Thickness 0.8 cm LVPW Diastolic Thickness 1.0 cm LV Relative Wall Thickness 0.5 RV Internal Dim ED PLAX 3.1 cm 1.9 - 3.8 cm LVOT Diameter 1.8 cm Aortic Root Diameter 2.4 cm LA Systolic Diameter LX 2.7 cm 3.0 - 4.0 / 2.7 - 3.8 cm LA Volume 24.0 cm 18 - 58 / 22 - 52 cm Ascending Aorta Diameter 2.6 cm DOPPLER AV Peak Velocity 185.0 cm/s AV Peak Gradient 13.7 mmHg AV Mean Velocity 120.0 cm/s AV Mean Gradient 7.0 mmHg AV Velocity Time Integral 34.0 cm LVOT Peak Velocity 117.0 cm/s LVOT Peak Gradient 5.5 mmHg LVOT Mean Velocity 75.8 cm/s LVOT Mean Gradient 3.0 mmHg LVOT Velocity Time Integral 18.8 cm LVOT Stroke Volume 47.8 cm AV Area Cont Eq vti 1.4 cm AV Area Cont Eq pk 1.6 cm MV Peak Velocity 121.0 cm/s MV Peak Gradient 5.9 mmHg MV Mean Velocity 81.8 cm/s MV Mean Gradient 3.0 mmHg Mitral E Point Velocity 83.4 cm/s Mitral A Point Velocity 98.7 cm/s Mitral E to A Ratio 0.8 MV PHT Velocity 101.0 cm/s MV Deceleration [place] 371.0 cm/s MV Pressure Half Time 81.7 ms MV Area PHT 2.7 cm MV Deceleration Time 240.0 ms TR Peak Velocity 373.0 cm/s TR Peak Gradient 55.7 mmHg Right Atrial Pressure 5.0 mmHg Pulmonary Artery Systolic Pressu 60.7 mmHg Right Ventricular Systolic Press 60.7 mmHg PV Peak Velocity 113.0 cm/s PV Peak Gradient 5.1 mmHg PV Mean Velocity 66.2 cm/s PV Mean Gradient 2.0 mmHg PV Velocity Time Integral 21.2 cm LV E' Lateral Velocity 11.4 cm/s Mitral E to LV E' Lateral Ratio 7.3 LV E' Septal Velocity 4.3 cm/s Mitral E to LV E' Septal Ratio 19.2
--- NOTE | 2017-07-25 14:59 | Cons- Cardiology ---
General Information and HPI Consulting Request Date of Consult: 07/25/17 Requested By: Arjun Briseno MD History of Present Illness: Ms Seo is a 61 year old female with history of asthma who has noted shortness of breath for two to three weeks. She was initially treated for an upper respiratory infection due to a cough but her symptoms continued to progress. She feels shortness of breath both at rest and with minimal activity along with orthopnea. She also has noted lightheadedness. Otherwise this patient is without any palpitations or chest discomfort. Finally, this patient has noted left leg swelling and discomfort. Workup has included a CT angiogram showing multiple bilateral pulmonary emboli and an ultrasound showed a left sided DVT. Allergies/Medications Allergies: Coded Allergies: Penicillins (RASH 07/24/17) Home Med List: Cetirizine HCl (Zyrtec) 10 MG TABLET 1 TAB PO DAILY allergy (Reported) Fluticasone/Salmeterol (Advair 250-50 Diskus) 250 MCG-50 MCG/DOSE BLST.W.DEV 1 PUF INH BID asthma (Reported) Ipratropium [place] 0.2 MG/ML (0.02 %) SOLUTION 1 Vial INH/JANEE 4 TIMES/DAY asthma (Reported) Ipratropium/Albuterol Sulfate (Iprat-Albut 0.5-3(2.5) MG/3 Ml) 0.5 MG-3 MG (2.5 MG BASE)/3 ML AMPUL.NEB ASTHMA (Reported) Omeprazole 20 MG TABLET.DR 1 TAB PO DAILY gerd (Reported) Review of Systems Review of Systems: psoriasis Past History Travel History Traveled to [place] past 21 day No Medical History Blood Transfusion Hx: No Neurological: NONE EENT: NONE Cardiovascular: NONE Respiratory: asthma Gastrointestinal: NONE Hepatic: NONE Renal: NONE Musculoskeletal: NONE Psychiatric: NONE Endocrine: NONE Blood Disorders: NONE Cancer(s): NONE 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 , Age 62; Cause: [place] (myocardial infarction). MOTHER (HX OF COPD ON O2). , Age 76; Cause: Breast cancer. Psychosocial History Where Do You Live? Home Smoking Status: Never Smoked ETOH Use: denies use Illicit Drug Use: denies illicit drug use Exam & Diagnostic Data Vital Signs and I&O Vital Signs Date Time Temp Pulse Resp B/P B/P Pulse O2 O2 Flow FiO2 Mean Ox Delivery Rate 07/25 1400 95 Nasal 2.0L Cannula 07/25 1221 95 Nasal 2.0L Cannula 07/25 1215 Nasal 2.0L Cannula 07/25 1200 Nasal 2.0L Cannula 07/25 0800 Nasal 2.0L Cannula 07/25 0800 98.0 108 20 112/66 95 Nasal 2.0L Cannula 07/25 0411 96 Nasal 2.0L Cannula 07/25 0400 96 Nasal 2.0L Cannula 07/25 0400 98.9 112 24 114/68 96 Nasal 2.0L Cannula 07/25 0400 96 Nasal 2.0L Cannula 07/25 0326 107 20 128/67 97 Nasal 2.0L Cannula 07/25 0245 105 20 113/69 95 Nasal 2.0L Cannula 07/25 0147 98.5 101 20 117/72 95 Nasal 2.0L Cannula 07/25 0047 107 20 109/57 974 Nasal 2.0L Cannula 07/24 2347 97.8 109 20 99/58 95 Nasal 2.0L Cannula 07/24 2307 98.6 106 18 96/52 96 Nasal 2.0L Cannula 07/24 2059 98.6 115 20 117/67 97 Nasal 2.0L Cannula 07/24 1956 99.6 115 20 96/56 95 Nasal 2.0L Cannula 07/24 1823 99.4 120 24 110/70 94 Room Air 07/24 1727 95 Room Air 07/24 1712 98.4 125 20 107/67 94 Room Air Intake & Output 07/25 1600 07/25 0800 07/25 0000 07/24 1600 07/24 0800 07/24 0000 Intake Total 1039 260 Output Total 250 420 Balance 789 -160 Intake, IV 439 20 Intake, Oral 600 240 Number 0 Bowel Movements Output, Urine 250 420 Patient 224 lb 200 lb Weight Weight Bed scale Estimated Measurement Method Physical Exam: General: WD/overweight female in NAD; alert and oriented x 3 HEENT: NC/AT, PERRL, EOMI Neck: no JVD, no carotid bruit Lungs: clear bilaterally Heart: Tachycardic and regular ABdomen: soft, obese, NT, +ve bowel sounds Extemities: no edema Assessment/Plan Assessment/Plan * This patient has evidence of tachycardia with borderline blood pressure, RV dilitation with decreased contractility and moderate to severe pulmonary hypertension. These findings are all consistent with RV strain related to the patient's bilateral pulmonary emboli. That being said, the patient does not have saddle emboli and this situation has likely already been going on for a while without any hemodynamic compromise although the patient is clearly short of breath. It is reasonable to monitor this patient carefully with the understanding that if she decompensated she should receive thrombolytics. * Begin IV heparin. * Improve IV hydration. This patient will be preload dependent. * The patient also has a lung nodule. Consideration should be given to a hypercoagulable state. Consult Acknowledgment - Thank you for your consult request.
[2017-07-25 16:00] VITALS: BP 104/60
[2017-07-25 18:29] LABS: ABSOLUTE BASOPHIL COUNT 0 /CUMM (0.0-0.2); ABSOLUTE EOSINOPHIL COUNT 0 /CUMM (0.0-0.7); ABSOLUTE GRANULOCYTE CT 18.6 /CUMM (1.4-6.5); ABSOLUTE LYMPH COUNT 1.3 /CUMM (1.2-3.4); ABSOLUTE MONOCYTE COUNT 0.4 /CUMM (0.10-0.60); BASOPHIL % 0 % (0.0-2.0); EOSINOPHIL % 0 % (0-5); HEMATOCRIT 26.6 % (37-47); MEAN CORPUSCULAR HGB 21.8 PG (27.0-31.0); MEAN CORPUSCULAR HGB CONC 30.3 G/DL (33.0-37.0); MEAN CORPUSCULAR VOLUME 72.1 FL (81.0-99.0); MEAN PLATELET VOLUME 9.6 FL (7.4-10.4); PLATELET COUNT 316 /CUMM (130-400); RBC DISTRIBUTION WIDTH 18.1 % (11.5-14.5); RED BLOOD CELL CT 3.69 /CUMM (4.20-5.40); WHITE BLOOD CELL COUNT 20.4 /CUMM (4.8-10.8)
[2017-07-25 18:30] LABS: GRANULOCYTE % 91.5 % (42.2-75.2)
[2017-07-25 18:39] LABS: PTT 68 SEC (25-37)
[2017-07-26] VITALS: BP 102/60
[2017-07-26 06:32] LABS: ABSOLUTE BASOPHIL COUNT 0 /CUMM (0.0-0.2); ABSOLUTE EOSINOPHIL COUNT 0 /CUMM (0.0-0.7); ABSOLUTE LYMPH COUNT 1.3 /CUMM (1.2-3.4); ABSOLUTE MONOCYTE COUNT 0.5 /CUMM (0.10-0.60); BASOPHIL % 0.1 % (0.0-2.0); EOSINOPHIL % 0 % (0-5); GRANULOCYTE % 90.4 % (42.2-75.2); HEMATOCRIT 25.8 % (37-47); MEAN CORPUSCULAR HGB 22.3 PG (27.0-31.0); MEAN CORPUSCULAR HGB CONC 30.8 G/DL (33.0-37.0); MEAN CORPUSCULAR VOLUME 72.4 FL (81.0-99.0); MEAN PLATELET VOLUME 9.6 FL (7.4-10.4); PLATELET COUNT 314 /CUMM (130-400); RBC DISTRIBUTION WIDTH 18.4 % (11.5-14.5); RED BLOOD CELL CT 3.57 /CUMM (4.20-5.40); WHITE BLOOD CELL COUNT 18.8 /CUMM (4.8-10.8)
[2017-07-26 06:56] LABS: PTT 43 SEC (25-37)
--- NOTE | 2017-07-26 07:33 | PN- Resident CRCU ---
[facility] 0733: Subjective HPI/CRCU Issues: Bilateral Pulmonary Emboli DVT of left leg Asthma Exacerbation 24 Hour Events: No acute events overnight. Patient was seen and examined this morning. She reports feeling better. Is on NC 2L of O2. Does not offer any complaints. Vitals have been stable overnight. Objective Vital Signs & I&O Last 8 Hrs of Vitals and I&O: . Exam General Appearance: no apparent distress, alert, awake, comfortable Head: atraumatic, normal appearance Respiratory: chest non-tender, decreased breath sounds, wheezing Cardiovascular: regular rate/rhythm Gastrointestinal: soft, non-tender Extremities: pedal edema Cranial Nerves: normal hearing, normal speech Skin: rash Skin Temp/Moisture Exam: Warm/Dry Sepsis Skin Exam (color): Normal for Ethnicity Current Medications: Current Medications Sig/José Miguel Start time Last Medication Dose Route Stop Time Status Admin Albuterol Sulfate 3 ML BID 07/25 1145 AC 07/26 INH 1003 Apixaban 5 MG BID 08/02 1000 CAN PO 09/01 2201 Apixaban 10 MG BID 07/26 1000 CAN PO 09/02 0959 Apixaban 10 MG BID 07/26 1000 CAN PO 08/01 2201 Azithromycin 500 MG DAILY 07/25 1000 AC 07/26 Dextrose/Water 250 ML IV 0934 Budesonide/ 2 PUF BID 07/25 1000 AC 07/26 Formoterol Fumarate INH 0934 Enoxaparin Sodium 150 MG DAILY 07/26 1017 AC SC Ferrous Sulfate 325 MG DAILY 07/26 1034 UNVr PO Guaifenesin 600 MG Q12 07/25 1000 AC 07/26 PO 0933 Heparin Sodium 5,000 UNIT ONCE ONE 07/26 0800 DC 07/26 (Porcine) IV 07/26 0801 0758 Heparin Sodium 5,000 UNIT ONCE ONE 07/26 0750 CAN (Porcine) IV 07/27 0751 Heparin Sodium 5,000 UNIT .STK-MED ONE 07/25 1207 DC (Porcine) IV 07/25 1208 Heparin Sodium 4,072 UNIT ONCE ONE 07/25 1200 DC 07/25 (Porcine) IV 07/25 1201 1215 Heparin Sodium 25,000 UNIT Q24H 07/24 2014 DC 07/25 (Porcine) IV 2129 Sodium Chloride 500 ML Ipratropium [place] 2.5 ML BID 07/25 1142 AC 02/05 INH 1004 Ipratropium [place] 2.5 ML ONCE PRN 07/25 0500 DC INH Methylprednisolone 40 MG Q12 07/25 1000 DC 07/25 IV 2127 Nystatin 1 NAZARIO BID 07/26 1014 DC TOP Nystatin 1 NAZARIO TID 07/26 1000 AC 07/26 TOP 0934 Omeprazole 20 MG 2200 07/25 2200 AC 07/25 PO 2127 Prednisone 10 MG DAILY 08/01 1000 AC PO 08/03 0959 Prednisone 20 MG DAILY 07/30 1000 AC PO 08/01 0959 Prednisone 30 MG DAILY 07/28 1000 AC PO 07/30 0959 Prednisone 40 MG DAILY 07/26 1000 CAN PO 08/03 0959 Prednisone 40 MG DAILY 07/26 1000 AC 07/26 PO 07/28 0959 1030 Sodium Chloride 1,000 ML Q10H 07/25 1530 CAN IV 07/26 1129 Sodium Chloride 1,000 ML Q10H 07/25 1530 AC 07/26 IV 07/26 1129 0659 Impression/Plan Impression/Problem List Impression: 61-year-old female with a PMH of asthma and psoriasis who presented to the ER complaining of cough and shortness of breath. Patient's cough had progressed over the course of one month initially improving with azithromycin and prednisone. She began to have progressive shortness of breath and weakness to the point of immobility for the past 4-5 days. In the ED she was found to have bilateral PE on CTA and DVT in left leg on Doppler. She was started on IV heparin. Assessment and Plan: Bilateral Pulmonary Emboli: * CTA evidence of bilateral PE * Continue oxygen supplementation to target O2 concentration > 92%. * Discontinue IV heparin * Will start SC Lovenox 150mg daily for 5 days and transition to NOAC then. * Patient is hemodynamically stable and no need to transfer to another facility at this time. * Stable to be downgraded to telemetry. * Echo shows normal LVEF of 70%, but shows moderately enlarged RV along with decreased contractility and moderate to severe pulmonary hypertension. DVT of Left Leg: * No interventions needed at this time. * Would continue on SC Lovenox for AC. Asthma Exacerbation: * Continue oxygen supplementation to target O2 concentration > 92%. * Discontinue Solu-Medrol * Start Prednisone 40mg and will taper every 2 days. * TRC nebs as needed * Continue IV Azithromycin * Sputum culture shows mixed growth. Will repeat. Microcytic Anemia: * MCV <80, RDW elevated. * Iron studies suggested of microcytic anemia * Will start ferrous sulphate daily * EGD/colonoscopy consideration as outpatient. Right Upper Lobe Pulmonary Nodule: * Incidental finding of 1.3cm right upper lung nodule on CTA. * Further management/investigation outpatient. Diet: Regular DVT Prophylaxis: SC Lovenox Code: Full Code Problem List: 1. Pulmonary embolism Pain Ratin Tomorrow's Labs & Rationales: CBC, ICU bundle Plan DVT/Prophylaxis: pharmacological Hitesh Queen MD 07/26/17 0848: Attending MD Review Statement Attending Sign Off Attending Cosign Statement: I have: examined this patient, reviewed avalbl EMR data, personally reviewd images, discussd w/resident/PA/[employer]SEMBLER, discussed mgmt plan w/ping, discussed mgmt plan w/CM, discussed mgmt plan w/pt, agreed w/resident/PA/[employer] ASSEMBLER, amended to note. Other Findings: IHitesh M.D. have examined this patient, reviewed available EMR data, personally reviewed images, discussed with resident/PA/[employer] SW[employer] ASSEMBLER, discussed management plan with housestaff and nursing staff, discussed managment plan all of healthcare providers, discussed management plan with patient and/or family, agreed with resident/PA/[employer] SWITCH ASSEMBLER. The past history and parts of the chart have been autopopulated. Impression 61 year old woman * admitted to the ICU secondary to hemodynamic instability secondary to VTE -DVT extending Left CFV to the popliteal vein -noncompressible thrombus proximal left greater saphenous vein -multifocal bilateral pulmonary emboli * 1.3cm RUL nodule - unclear etiology - will require follow up * asthma exacerbation triggered by acute illness * leukocytosis Plan -ECHO reviewed -vascular surgery consultation appreciated - no recs for IVC filter - significant clot burden in both pulmonary and lower extremity vessels - A/C is sufficient -cardiology consultation appreciated -post discharge will require follow up for 1.3cm RUL nodule -TRC/Nebs -dc solumedrol - prednisone 40x2, 30x2, 20x2, 10x2 then stop -pt on Advair at home -given leukocytosis cont zithromax - however likely inflammatory vs steroid induced -sputum cx -heparin gtt -hematology consultation appreciated - microcytic anemia workup - switch for iv heparin to Eliquis DVT prophylaxis at all times TTS 35 min Dg to telemetry
[2017-07-26 08:00] VITALS: BP 112/70
--- NOTE | 2017-07-26 08:10 | Cons- Hematology ---
General Information and HPI Consulting Request Date of Consult: 07/26/17 Requested By: Hitesh Queen MD Reason for Consult: Pulmonary embolism Source of Information: patient, old records Exam Limitations: no limitations History of Present Illness: Ms. Seo is a 61-year-old female with asthma who presented to the [facility] with 4 weeks of respiratory symptoms. She was recently treated for acute bronchitis with antibiotics and steroid. Symptomatically she improved but worsened again after about week. She had more shortness of breath. She has persistent coughing. She denies any fever or chills. She denies any hemoptysis. Her dyspnea continued to worsen to dyspnea at rest. She denies any chest pain. On presentation to the [facility] ED, she was noted to be tachycardic. CTA was done and noted bilateral pulmonary edema with a left lower extremity DVT. She was started on antibiotics, steroids, and heparin drip. Her echocardiogram noted pulmonary hypertension. Vascular surgery has been consulted. Elective thrombolysis was an option if she was hemodynamically unstable. She was monitored in ICU. Currently she feels better. She denies any pain. She has no fever or chills. She denies any bleeding. She has not had any blood in his stool or urine. She states she was active during her initial period of acute bronchitis. She denies any recent travel. She denies any recent episode of immobility. She denies any recent surgery. She has not taken any medication. She has never had any thrombosis. She denies any family history of blood clots. Her father did have a heart attack in his 60. She denies any stroke in the family. She denies any cancer in the family. Patient has not had a colonoscopy. She did have her hysterectomy for menorrhagia. She is a nonsmoker. Allergies/Medications Allergies: Coded Allergies: Penicillins (RASH 07/24/17) Home Med List: Cetirizine HCl (Zyrtec) 10 MG TABLET 1 TAB PO DAILY allergy (Reported) Fluticasone/Salmeterol (Advair 250-50 Diskus) 250 MCG-50 MCG/DOSE BLST.W.DEV 1 PUF INH BID asthma (Reported) Ipratropium [place] 0.2 MG/ML (0.02 %) SOLUTION 1 Vial INH/JANEE 4 TIMES/DAY asthma (Reported) Ipratropium/Albuterol Sulfate (Iprat-Albut 0.5-3(2.5) MG/3 Ml) 0.5 MG-3 MG (2.5 MG BASE)/3 ML AMPUL.NEB ASTHMA (Reported) Omeprazole 20 MG TABLET.DR 1 TAB PO DAILY gerd (Reported) Current Medications: Current Medications Sig/José Miguel Start time Last Medication Dose Route Stop Time Status Admin Albuterol Sulfate 3 ML BID 02 1145 AC 07/25 INH 1849 Azithromycin 500 MG DAILY 07/25 1000 AC 07/25 Dextrose/Water 250 ML IV 1017 Budesonide/ 2 PUF BID 07/25 1000 AC 07/25 Formoterol Fumarate INH 2127 Guaifenesin 600 MG Q12 07/25 1000 AC / PO 2127 Heparin Sodium 5,000 UNIT ONCE ONE 07/26 0800 UNVr (Porcine) IV 07/26 0801 Heparin Sodium 5,000 UNIT .STK-MED ONE 07/25 1207 DC (Porcine) IV 07/25 1208 Heparin Sodium 4,072 UNIT ONCE ONE 07/25 1200 DC 07/25 (Porcine) IV 07/25 1201 1215 Heparin Sodium 25,000 UNIT Q24H / 2015 AC 07/25 (Porcine) IV 2129 Sodium Chloride 500 ML Influenza Virus 0.5 ML ONCE ONE 07/25 0830 DC Vaccine IM 07/25 0831 Ipratropium [place] 2.5 ML BID 07/25 1142 AC 07/25 INH 1848 Ipratropium [place] 2.5 ML ONCE PRN / 0500 DC INH Methylprednisolone 40 MG Q12 07/25 1000 AC 07/25 IV 2127 Nystatin 1 NAZARIO TID 07/26 1000 UNVr TOP Omeprazole 20 MG 2200 07/25 2200 AC / PO 2127 Omeprazole 20 MG DAILY AC 07/25 0700 DC PO Potassium Chloride 40 MEQ ONCE ONE 07/25 0945 DC 02/04 PO / 0946 1016 Sodium Chloride 1,000 ML Q10H / 1530 CAN IV 07/26 1129 Sodium Chloride 1,000 ML Q10H / 1530 AC 02/ IV 07/26 1129 0659 Review of Systems Review of Systems Constitutional: Reports: weakness. Denies: chills, fever. EENTM: Denies: double vision, visual changes, epistaxis. Cardiovascular: Reports: palpitations, peripheral edema. Denies: chest pain, syncope. Respiratory: Reports: cough, short of breath, sputum production. Denies: hemoptysis, stridor , wheezing. GI: Denies: abdominal pain, diarrhea, melena, nausea, bloody stool, changes in stool , vomiting. Musculoskeletal: Denies: back pain. Skin: Denies: erythema. Hematologic/Endocrine: Denies: bruising, bleeding. All Other Systems: Reviewed and Negative Past History Travel History Traveled to [place] past 21 day No Medical History Blood Transfusion Hx: No Neurological: NONE EENT: NONE Cardiovascular: NONE Respiratory: asthma Gastrointestinal: NONE Hepatic: NONE Renal: NONE Musculoskeletal: NONE Psychiatric: NONE Endocrine: NONE Blood Disorders: NONE Cancer(s): NONE PRODUCTION SUPPLY EQUIPMENT TENDER/Reproductive: NONE Surgical History Surgical History: hysterectomy, spinal fusion (cervical with ibg), tonsilectomy, carpal tunnel release Family History Relations & Conditions If Any: FATHER (HX OF LUNG CANCER, DM). , Age 62; Cause: CA (myocardial infarction). MOTHER (HX OF COPD ON O2). , Age 76; Cause: Breast cancer. Psychosocial History Where Do You Live? Home Smoking Status: Never Smoked ETOH Use: denies use Illicit Drug Use: denies illicit drug use Functional Ability ADLs Independent: dressing, eating, toileting, bathing. Ambulation: independent IADLs Unknown: shopping, housework, finances, food prep, telephone, transportation, medication admin. Exam & Diagnostic Data Vital Signs and I&O Vital Signs Date Time Temp Pulse Resp B/P B/P Pulse O2 O2 Flow FiO2 Mean Ox Delivery Rate 07/26 0400 98 Nasal 2.0L Cannula 07/26 0000 99.1 109 20 102/60 96 Nasal 2.0L Cannula 07/26 0000 96 Nasal 2.0L Cannula 07/25 2200 95 Nasal 2.0L Cannula 07/25 2000 95 Nasal 2.0L Cannula 07/25 1850 94 Nasal 2.0L Cannula 07/25 1600 94 Nasal 2.0L Cannula 07/25 1600 97.3 106 27 104/60 94 Nasal 2.0L Cannula 07/25 1400 95 Nasal 2.0L Cannula 07/25 1221 95 Nasal 2.0L Cannula 07/25 1215 Nasal 2.0L Cannula 07/25 1200 Nasal 2.0L Cannula 07/25 0800 Nasal 2.0L Cannula 07/25 0800 98.0 108 20 112/66 95 Nasal 2.0L Cannula Intake & Output 07/26 0800 07/26 0000 07/25 1600 Intake Total 869.2 1039 Output Total 300 250 Balance 569.2 789 Intake, IV 629.2 439 Intake, Oral 240 600 Output, Urine 300 250 Physical Exam General Appearance: well developed/nourished, no apparent distress, alert, awake , comfortable Head: atraumatic, normal appearance Eyes: Bilateral: PERRL, EOMI. Ears, Nose, Throat: normal pharynx, normal ENT inspection, On 2L NC Respiratory: normal breath sounds, chest non-tender, no respiratory distress, decreased breath sounds Cardiovascular: edema (2+ LLE), tachycardia Gastrointestinal: normal bowel sounds, soft, non-tender Extremities: 2+ LLE edema Neurologic/Psych: awake, alert, oriented x 3 Cranial Nerves: normal hearing, normal speech, PERRL Skin: normal color, warm/dry Lymphatic: no anterior cervical sera Last 48 Hours of Lab Results: Laboratory Tests 07/26 07/25 0500 1755 Chemistry Sodium (137 - 145 mmol/L) 144 Potassium (3.5 - 5.1 mmol/L) 4.2 Chloride (98 - 107 mmol/L) 106 Carbon Dioxide (22 - 30 mmol/L) 24 Anion Gap (5 - 16) 14 BUN (7 - 17 mg/dL) 10 Creatinine (0.5 - 1.0 mg/dL) 0.6 Estimated GFR (>60 ml/min) > 60 Glucose (65 - 99 mg/dL) 141 H Calcium (8.4 - 10.2 mg/dL) 9.2 Phosphorus (2.5 - 4.5 mg/dL) 3.3 Magnesium (1.6 - 2.3 mg/dL) 2.2 Total Bilirubin (0.2 - 1.3 mg/dL) 0.2 AST (14 - 36 U/L) 61 H ALT (9 - 52 U/L) 51 Albumin (3.5 - 5.0 g/dL) 3.0 L Coagulation APTT (25 - 37 SEC) 43 H 68 H Hematology CBC w Diff MAN DIFF ORDERED NO MAN DIFF REQ WBC (4.8 - 10.8 /CUMM) 18.8 H 20.4 H RBC (4.20 - 5.40 /CUMM) 3.57 L 3.69 L Hgb (12.0 - 16.0 G/DL) 7.9 L 8.1 L Hct (37 - 47 %) 25.8 L 26.6 L MCV (81.0 - 99.0 FL) 72.4 L 72.1 L MCH (27.0 - 31.0 PG) 22.3 L 21.8 L MCHC (33.0 - 37.0 G/DL) 30.8 L 30.3 L RDW (11.5 - 14.5 %) 18.4 H 18.1 H Plt Count (130 - 400 /CUMM) 314 316 MPV (7.4 - 10.4 FL) 9.6 9.6 Gran % (42.2 - 75.2 %) 90.4 H 91.5 H Lymphocytes % (20.5 - 51.1 %) 6.8 L 6.4 L Monocytes % (1.7 - 9.3 %) 2.7 2.1 Eosinophils % (0 - 5 %) 0 0 Basophils % (0.0 - 2.0 %) 0.1 0 Absolute Granulocytes (1.4 - 6.5 /CUMM) 17.0 H 18.6 H Absolute Lymphocytes (1.2 - 3.4 /CUMM) 1.3 1.3 Absolute Monocytes (0.10 - 0.60 /CUMM) 0.5 0.4 Absolute Eosinophils (0.0 - 0.7 /CUMM) 0 0 Absolute Basophils (0.0 - 0.2 /CUMM) 0 0 Platelet Estimate (ADEQUATE) ADEQUATE Hypochromic-Microcytic 1+ Ovalocytes 1+ 07/25 07/25 07/25 07/25 1025 0745 0610 0325 Chemistry Sodium (137 - 145 mmol/L) 141 Potassium (3.5 - 5.1 mmol/L) 3.4 L Chloride (98 - 107 mmol/L) 104 Carbon Dioxide (22 - 30 mmol/L) 25 Anion Gap (5 - 16) 13 BUN (7 - 17 mg/dL) 7 Creatinine (0.5 - 1.0 mg/dL) 0.6 Estimated GFR (>60 ml/min) > 60 Glucose (65 - 99 mg/dL) 113 H Calcium (8.4 - 10.2 mg/dL) 8.3 L Phosphorus (2.5 - 4.5 mg/dL) 2.5 Magnesium (1.6 - 2.3 mg/dL) 2.0 Total Bilirubin (0.2 - 1.3 mg/dL) 0.3 AST (14 - 36 U/L) 49 H ALT (9 - 52 U/L) 33 Troponin I (< 0.11 ng/ml) 0.02 Albumin (3.5 - 5.0 g/dL) 2.8 L Coagulation APTT (25 - 37 SEC) 47 H > 120 *H Hematology CBC w Diff NO MAN DIFF REQ WBC (4.8 - 10.8 /CUMM) 17.6 H RBC (4.20 - 5.40 /CUMM) 3.49 L Hgb (12.0 - 16.0 G/DL) 7.8 L Hct (37 - 47 %) 25.0 L MCV (81.0 - 99.0 FL) 71.8 L MCH (27.0 - 31.0 PG) 22.5 L MCHC (33.0 - 37.0 G/DL) 31.3 L RDW (11.5 - 14.5 %) 18.2 H Plt Count (130 - 400 /CUMM) 257 MPV (7.4 - 10.4 FL) 10.0 Gran % (42.2 - 75.2 %) 82.9 H Lymphocytes % (20.5 - 51.1 %) 10.4 L Monocytes % (1.7 - 9.3 %) 6.2 Eosinophils % (0 - 5 %) 0.1 Basophils % (0.0 - 2.0 %) 0.4 Absolute Granulocytes (1.4 - 6.5 /CUMM) 14.6 H Absolute Lymphocytes (1.2 - 3.4 /CUMM) 1.8 Absolute Monocytes (0.10 - 0.60 /CUMM) 1.1 H Absolute Eosinophils (0.0 - 0.7 /CUMM) 0 Absolute Basophils (0.0 - 0.2 /CUMM) 0.1 07/25 01/ 0015 1724 Chemistry Sodium (137 - 145 mmol/L) 142 Potassium (3.5 - 5.1 mmol/L) 3.4 L Chloride (98 - 107 mmol/L) 97 L Carbon Dioxide (22 - 30 mmol/L) 28 Anion Gap (5 - 16) 17 H BUN (7 - 17 mg/dL) 8 Creatinine (0.5 - 1.0 mg/dL) 0.8 Estimated GFR (>60 ml/min) > 60 BUN/Creatinine Ratio (7 - 25 %) 10.0 Glucose (65 - 99 mg/dL) 126 H Calcium (8.4 - 10.2 mg/dL) 9.0 Total Bilirubin (0.2 - 1.3 mg/dL) 0.5 AST (14 - 36 U/L) 37 H ALT (9 - 52 U/L) 35 Alkaline Phosphatase (<127 U/L) 86 Troponin I (< 0.11 ng/ml) 0.03 0.05 [id number] Pept (<125 pg/mL) 4740 H Total Protein (6.3 - 8.2 g/dL) 6.7 Albumin (3.5 - 5.0 g/dL) 3.5 Globulin (1.9 - 4.2 gm/dL) 3.2 Albumin/Globulin Ratio (1.1 - 2.2 %) 1.1 Coagulation PT (9.4 - 12.5 SEC) 16.2 H INR (0.90 - 1.19) 1.55 H APTT (25 - 37 SEC) 39 H D-Dimer High Sensitivty (0 - 243 ng/ml) 1916 H Hematology CBC w Diff MAN DIFF ORDERED WBC (4.8 - 10.8 /CUMM) 24.0 H RBC (4.20 - 5.40 /CUMM) 4.39 Hgb (12.0 - 16.0 G/DL) 9.6 L Hct (37 - 47 %) 31.7 L MCV (81.0 - 99.0 FL) 72.2 L MCH (27.0 - 31.0 PG) 22.0 L MCHC (33.0 - 37.0 G/DL) 30.4 L RDW (11.5 - 14.5 %) 17.9 H Plt Count (130 - 400 /CUMM) 366 MPV (7.4 - 10.4 FL) 8.6 Gran % (42.2 - 75.2 %) 74.0 Lymphocytes % (20.5 - 51.1 %) 16.7 L Monocytes % (1.7 - 9.3 %) 8.0 Eosinophils % (0 - 5 %) 0.4 Basophils % (0.0 - 2.0 %) 0.9 Absolute Granulocytes (1.4 - 6.5 /CUMM) 17.7 H Segmented Neutrophils (42.2 - 75.2 %) 68 Band Neutrophils (0.0 - 5.0 %) 3 Absolute Lymphocytes (1.2 - 3.4 /CUMM) 4.0 H Lymphocytes (20.5 - 51.1 %) 22 Monocytes (1.7 - 9.3 %) 7 Absolute Monocytes (0.10 - 0.60 /CUMM) 1.9 H Absolute Eosinophils (0.0 - 0.7 /CUMM) 0.1 Absolute Basophils (0.0 - 0.2 /CUMM) 0.2 Nucleated RBCs (0.0 - 0.0 /100WBC) 1 H Platelet Estimate (ADEQUATE) ADEQUATE Hypochromic-Microcytic 1+ Anisocytosis 1+ Microcytic Cells 1+ Imaging/Other Studies: Doppler US of lower extremities 07/24/2017: 1. There is deep venous thrombosis extending from the left common femoral vein to the popliteal vein. The left calf veins are poorly visualized. 2. There is noncompressible thrombus within the proximal left greater saphenous vein. 3. No right lower extremity deep venous thrombosis is seen. CTA chest 07/24/2017: 1. Multifocal bilateral pulmonary embolism. 2. A nonspecific 1.3 cm right upper lobe nodule. Recommend 3 month follow-up chest CT scan for re-evaluation. 3. Rrx-yxgl-fami subpleural small opacities in the right middle and lower lobes could represent atelectasis or pulmonary infarct. Echocardiogram 07/24/2017: 1. Normal EF of 70% with impaired LV relaxation. 2. Moderately enlarged right ventricle with decreased contractility. 3. Moderate to severe pulmonary hypertension. 4. Mild mitral regurgitation. 5. Mild tricuspid regurgitation. 6. Trace pulmonic regurgitation. 7. Small pericardial effusion. Assessment/Plan Assessment: Ms. Seo is a 61-year-old female with asthma who presented to the [facility] with 4 weeks of respiratory symptoms. She reports 4 weeks of dyspnea with exertion progressing to dyspnea at rest, cough, and lower extremity edema. She has no chest pain. On presentation to the [facility] ED, CTA of the chest was done and noted multifocal pulmonary embolism and lower extremity doppler ultrasound demonstrated deep venous thrombosis extending from the left common femoral vein to the popliteal vein. There was a noncompressible thrombus within the proximal left greater saphenous vein. She was started on a heparin drip. Thrombosis seemed to be unprovoked. She'll need hypercoagulable workup as an outpatient. She'll remain on heparin drip and transition to oral anticoagulant on discharge. She may follow-up a few weeks after discharge. Of note, she does have a microcytic anemia. She never had a colonoscopy. She should have guaiac checked. She should be checked for iron deficiency. If she does have iron deficiency anemia, she should have iron repletion. She will also require GI workup including colonoscopy and possible EGD. The leukocytosis is likely related to steroid usage and recent stressors. If she has persistent leukocytosis, she will require further workup. Differentials on the CBC are relatively normal. Her pulmonary nodule is of unclear etiology. She is a nonsmoker. This should be rechecked in a few months. Recommendations: Pulmonary embolism with DVT: -UFH and transition to oral anticoagulant -Consider UFH/LMWH for 5 days prior to starting oral anticoagulant -Hypercoagulable work up as outpatient -Follow up 2-4 weeks after discharge Microcytic anemia: -Check stool guaiac -Check iron studies -Consider GI work up: Colonoscopy +/- EGD (never had colonoscopy, age >50, anemia) Leukocytosis: -Monitor for now Pulmonary nodules: -Repeat imaging as outpatient Problem List: 1. Pulmonary embolism 2. Leukocytosis (leucocytosis) 3. Pulmonary nodule 4. Anemia Other Findings/Comments: Please call [phone] with any questions or concerns. Consult Acknowledgment - Thank you for your consult request.
--- NOTE | 2017-07-26 09:53 | PN- Student ---
Felton Morrow 07/26/17 0907: Subjective Subjective: Interim: No acute overnight events. Pt pleasant and conversant, denies any new problems. Denies CP, SOB, V/D, fevers, abdominal pain, urinary retention, calf pain, increased LE swelling. Pt's HgB approx. 8 today. Pt denies recent dx of anemia. States she was anemic many years ago prior to her hysterectomy for menorrhagia. Discussed importance of colonoscopy screening, although pt hesitant as her sister in law's colonoscopy resulted in an ostomy. Echo reveals EF of 70%, mod-severe pulm HTN, and some mild valvular abnormalities. Objective Objective: PE: Constitutional - NAD, laying comfortably in bed eating breakfast. HEENT: NC/AT Pulm : No resp. distress, on 2L nasal cannula, no accessory muscle use, lungs with expiratory wheezes bilat. CV: regular rhythm, tachycardic (104), no M/R/G/C Abdomen: obese, NTTP, no masses, no guarding. MSK: 1-2+ edema LLE > RLE , bilat LEs nontender to palpation, - Paramjit's sign . Vital Signs Result Date Time Pulse Ox 96 07/26 0800 O2 Delivery Nasal Cannula 07/26 0800 O2 Flow Rate 2.0L 07/26 0800 B/P 112/70 07/26 0800 Temp 96.9 07/26 0800 Pulse 104 / 0800 Resp 24 / 0800 Intake & Output 07/26 0000 02/04 1600 / 0800 Intake Total 869.2 1039 260 Output Total 300 250 420 Balance 569.2 789 -160 Intake, IV 629.2 439 20 Intake, Oral 240 600 240 Number 0 Bowel Movements Output, Urine 300 250 420 Patient 224 lb Weight Weight Bed scale Measurement Method Laboratory Tests 07/26 07/25 0500 1755 Chemistry Sodium (137 - 145 mmol/L) 144 Potassium (3.5 - 5.1 mmol/L) 4.2 Chloride (98 - 107 mmol/L) 106 Carbon Dioxide (22 - 30 mmol/L) 24 Anion Gap (5 - 16) 14 BUN (7 - 17 mg/dL) 10 Creatinine (0.5 - 1.0 mg/dL) 0.6 Estimated GFR (>60 ml/min) > 60 Glucose (65 - 99 mg/dL) 141 H Calcium (8.4 - 10.2 mg/dL) 9.2 Phosphorus (2.5 - 4.5 mg/dL) 3.3 Magnesium (1.6 - 2.3 mg/dL) 2.2 Iron (37 - 170 ug/dL) Pending TIBC (265 - 497 ug/dL) Pending Ferritin (11.1 - 264 ng/mL) Pending Total Bilirubin (0.2 - 1.3 mg/dL) 0.2 AST (14 - 36 U/L) 61 H ALT (9 - 52 U/L) 51 Albumin (3.5 - 5.0 g/dL) 3.0 L Coagulation APTT (25 - 37 SEC) 43 H 68 H Hematology CBC w Diff MAN DIFF ORDERED NO MAN DIFF REQ WBC (4.8 - 10.8 /CUMM) 18.8 H 20.4 H RBC (4.20 - 5.40 /CUMM) 3.57 L 3.69 L Hgb (12.0 - 16.0 G/DL) 7.9 L 8.1 L Hct (37 - 47 %) 25.8 L 26.6 L MCV (81.0 - 99.0 FL) 72.4 L 72.1 L MCH (27.0 - 31.0 PG) 22.3 L 21.8 L MCHC (33.0 - 37.0 G/DL) 30.8 L 30.3 L RDW (11.5 - 14.5 %) 18.4 H 18.1 H Plt Count (130 - 400 /CUMM) 314 316 MPV (7.4 - 10.4 FL) 9.6 9.6 Gran % (42.2 - 75.2 %) 90.4 H 91.5 H Lymphocytes % (20.5 - 51.1 %) 6.8 L 6.4 L Monocytes % (1.7 - 9.3 %) 2.7 2.1 Eosinophils % (0 - 5 %) 0 0 Basophils % (0.0 - 2.0 %) 0.1 0 Absolute Granulocytes (1.4 - 6.5 /CUMM) 17.0 H 18.6 H Absolute Lymphocytes (1.2 - 3.4 /CUMM) 1.3 1.3 Absolute Monocytes (0.10 - 0.60 /CUMM) 0.5 0.4 Absolute Eosinophils (0.0 - 0.7 /CUMM) 0 0 Absolute Basophils (0.0 - 0.2 /CUMM) 0 0 Platelet Estimate (ADEQUATE) ADEQUATE Hypochromic-Microcytic 1+ Ovalocytes 1+ Retic Count (0.5 - 2.0 %) 2.68 H 07/25 1025 Coagulation APTT (25 - 37 SEC) 47 H Current Medications Sig/José Miguel Start time Last Medication Dose Route Stop Time Status Admin Albuterol Sulfate 3 ML BID 07/25 1145 AC 07/25 INH 1849 Azithromycin 500 MG DAILY 07/25 1000 AC 07/25 Dextrose/Water 250 ML IV 1017 Budesonide/ 2 PUF BID 07/25 1000 AC 07/25 Formoterol Fumarate INH 2127 Guaifenesin 600 MG Q12 07/25 1000 AC 07/25 PO 2127 Heparin Sodium 5,000 UNIT ONCE ONE 07/26 0800 DC 07/26 (Porcine) IV 07/26 0801 0758 Heparin Sodium 5,000 UNIT ONCE ONE 07/26 0750 CAN (Porcine) IV 07/27 0751 Heparin Sodium 5,000 UNIT .STK-MED ONE 07/25 1207 DC (Porcine) IV 07/25 1208 Heparin Sodium 4,072 UNIT ONCE ONE 07/25 1200 DC 07/25 (Porcine) IV 07/25 1201 1215 Heparin Sodium 25,000 UNIT Q24H 07/24 2015 AC 07/25 (Porcine) IV 2129 Sodium Chloride 500 ML Ipratropium Sebastian 2.5 ML BID 07/25 1142 AC 04 INH 1848 Ipratropium Sebastian 2.5 ML ONCE PRN 07/25 0500 DC INH Methylprednisolone 40 MG Q12 04 1000 DC 04 IV 2127 Nystatin 1 NAZARIO TID 07/26 1000 AC TOP Omeprazole 20 MG 2200 07/25 2200 AC 07/25 PO 2127 Potassium Chloride 40 MEQ ONCE ONE 07/25 0945 DC 07/25 PO 07/25 0946 1016 Prednisone 10 MG DAILY 08/01 1000 AC PO 08/03 0959 Prednisone 20 MG DAILY 07/30 1000 AC PO 08/01 0959 Prednisone 30 MG DAILY 07/28 1000 AC PO 07/30 0959 Prednisone 40 MG DAILY 07/26 1000 CAN PO 08/03 0959 Prednisone 40 MG DAILY 07/26 1000 AC PO 07/28 0959 Sodium Chloride 1,000 ML Q10H 07/25 1530 CAN IV 07/26 1129 Sodium Chloride 1,000 ML Q10H 07/25 1530 AC 07/26 IV 07/26 1129 0659 Results Results: Laboratory Tests 07/26/17 0500: Anion Gap 14, Estimated GFR > 60, Glucose 141 H, Calcium 9.2, Phosphorus 3.3, Magnesium 2.2, Iron 22 L, TIBC 268, Ferritin Pending, Total Bilirubin 0.2, AST 61 H, ALT 51, Albumin 3.0 L, APTT 43 H, CBC w Diff MAN DIFF ORDERED, RBC 3.57 L, MCV 72.4 L, MCH 22.3 L, MCHC 30.8 L, RDW 18.4 H, MPV 9.6, Gran % 90.4 H , Lymphocytes % 6.8 L, Monocytes % 2.7, Eosinophils % 0, Basophils % 0.1, Absolute Granulocytes 17.0 H, Absolute Lymphocytes 1.3, Absolute Monocytes 0.5, Absolute Eosinophils 0, Absolute Basophils 0, Platelet Estimate ADEQUATE, Hypochromic-Microcytic 1+, Ovalocytes 1+, Retic Count 2.68 H 07/25/17 1755: APTT 68 H, CBC w Diff NO MAN DIFF REQ, RBC 3.69 L, MCV 72.1 L, MCH 21.8 L, MCHC 30.3 L, RDW 18.1 H, MPV 9.6, Gran % 91.5 H, Lymphocytes % 6.4 L, Monocytes % 2.1, Eosinophils % 0, Basophils % 0, Absolute Granulocytes 18.6 H, Absolute Lymphocytes 1.3, Absolute Monocytes 0.4, Absolute Eosinophils 0, Absolute Basophils 0 07/25/17 1025: APTT 47 H 07/25/17 0745: Anion Gap 13, Estimated GFR > 60, Glucose 113 H, Calcium 8.3 L, Phosphorus 2.5 , Magnesium 2.0, Total Bilirubin 0.3, AST 49 H, ALT 33, Albumin 2.8 L, CBC w Diff NO MAN DIFF REQ, RBC 3.49 L, MCV 71.8 L, MCH 22.5 L, MCHC 31.3 L, RDW 18.2 H, MPV 10.0, Gran % 82.9 H, Lymphocytes % 10.4 L, Monocytes % 6.2, Eosinophils % 0.1, Basophils % 0.4, Absolute Granulocytes 14.6 H, Absolute Lymphocytes 1.8, Absolute Monocytes 1.1 H, Absolute Eosinophils 0, Absolute Basophils 0.1 07/25/17 0610: Troponin I 0.02 07/25/17 0325: APTT > 120 *H 07/25/17 0015: Troponin I 0.03 07/24/17 1724: Anion Gap 17 H, Estimated GFR > 60, BUN/Creatinine Ratio 10.0, Glucose 126 H, Calcium 9.0, Total Bilirubin 0.5, AST 37 H, ALT 35, Alkaline Phosphatase 86, Troponin I 0.05, Hfm-P-Bvnpbbsgjfp Pept 4740 H, Total Protein 6.7, Albumin 3.5, Globulin 3.2, Albumin/Globulin Ratio 1.1, PT 16.2 H, INR 1.55 H, APTT 39 H, D -Dimer High Sensitivty 1916 H, CBC w Diff MAN DIFF ORDERED, RBC 4.39, MCV 72.2 L, MCH 22.0 L, MCHC 30.4 L, RDW 17.9 H, MPV 8.6, Gran % 74.0, Lymphocytes % 16.7 L, Monocytes % 8.0, Eosinophils % 0.4, Basophils % 0.9, Absolute Granulocytes 17.7 H, Segmented Neutrophils 68, Band Neutrophils 3, Absolute Lymphocytes 4.0 H, Lymphocytes 22, Monocytes 7, Absolute Monocytes 1.9 H, Absolute Eosinophils 0.1, Absolute Basophils 0.2, Nucleated RBCs 1 H, Platelet Estimate ADEQUATE, Hypochromic-Microcytic 1+, Anisocytosis 1+, Microcytic Cells 1+ Microbiology 07/25 1030 LOWER RESP: Respiratory Culture - RES 07/25 1030 LOWER RESP: Gram Stain - RES 07/25 0400 UPPER RESP: Surveillance Culture - COMP 07/25 040 GI: Surveillance Culture - COLB 07/24 1746 NASOPHARYN: Influenza Virus A & B Rapid Smear - COMP Assessment/Plan Assessment: A&P: Pt is a 61 yo F with a PMH of asthma, GERD who presented to with persistent URI symptoms that began in June & were unresponsive to steroids and azithromycin therapy. Her HPI was notable for increased swelling in her LLE, CTA was subsequently ordered and identified bilat pulmonary embolisms and a right sided nodule. She was also noted to have a L common femoral vein DVT extending to the L popliteal vein. She has since been started on Heparin, steroids, and antbx therapy. The PEs, as of now, appear to be unprovoked. Denies coagulopathy/immobility/ malignancy/ trauma/ smoking. Echo has been performed which reveals a 70% EF, valvular abnormalities, mod-severe pulmonary HTN. Vascular surgery recommends continuing heparin with eventual transition to DOAC. If pt becomes hemodynamically unstable can consider thrombolytics. Pt has also been found to be anemic with an H/H of approx 02/13. Plan: #Pulmonary embolism - continue heparin with eventual transition to DOAC (may consider 5 days of LMWH prior to DOAC). - q4h vitals - coagulopathy workup as an outpatient. - colonoscopy/mammogram as an outpatient for anemia and possible cause of hypercoagulable state. - may D/c manual DVT prophylaxis as heparin is sufficient. #Asthma -daily LABA + ICS -albuterol neb PRN - pt will need reassesment of asthma med regimen as an OP as she is using albuterol 3-4 times daily which is excessive. #Tachycardia - most likely secondary to asthma related bronchospasm - also a SE of beta agonist. - will monitor. # CV - pt will need cardiology to follow for ECHO results including mod-severe pulm HTN and multiple mild valvular abnormalities. # Pulmonary nodule - will require OP workup. JUAN MIGUEL Stuart-S2 07/26/2017 Tiffanie CARLOS,Julio 07/26/17 0955: Resident Review Statement Resident Statement: examined this patient, discussed with general internal medicine physician, agreed with general internal medicine physician, discussed with family, reviewed EMR data (avail), discussed with nursing , discussed with case mgmt, reviewed images, amended to note
--- NOTE | 2017-07-26 10:38 | PN- Cardiology ---
Subjective Subjective: * Breathing and respiratory rate is improved today. * low H/H with increased WBC count Objective Vital Signs and I&Os Vital Signs Date Time Temp Pulse Resp B/P B/P Pulse O2 O2 Flow FiO2 Mean Ox Delivery Rate 07/26 1007 96 Nasal 2.0L Cannula 07/26 08 96 Nasal 2.0L Cannula 07/26 08 96.9 104 24 112/70 96 Nasal 2.0L Cannula 07/26 0600 96 Nasal 2.0L Cannula 07/26 0400 98 Nasal 2.0L Cannula 07/26 0000 99.1 109 20 102/60 96 Nasal 2.0L Cannula 07/26 0000 96 Nasal 2.0L Cannula 07/25 2200 95 Nasal 2.0L Cannula 07/25 2000 95 Nasal 2.0L Cannula 07/25 1850 94 Nasal 2.0L Cannula 07/25 1600 94 Nasal 2.0L Cannula 07/25 1600 97.3 106 27 104/60 94 Nasal 2.0L Cannula 07/25 1400 95 Nasal 2.0L Cannula 07/25 1221 95 Nasal 2.0L Cannula 07/25 1215 Nasal 2.0L Cannula 07/25 1200 Nasal 2.0L Cannula Intake & Output 07/26 1600 07/26 0800 07/26 0000 07/25 1600 07/25 0800 07/25 0000 Intake Total 1619 869.2 1039 260 Output Total 600 300 250 420 Balance 1019 569.2 789 -160 Intake, IV 1379 629.2 439 20 Intake, Oral 240 240 600 240 Number 0 Bowel Movements Output, Urine 600 300 250 420 Patient 224 lb Weight Weight Bed scale Measurement Method Physical Exam: General: WD/overweight female in NAD; alert and oriented x 3 HEENT: NC/AT, PERRL, EOMI Neck: no JVD, no carotid bruit Lungs: clear bilaterally Heart: Tachycardic and regular ABdomen: soft, obese, NT, +ve bowel sounds Extemities: no edema Assessment/Plan Assessment/Plan * This patient had evidence of tachycardia with borderline blood pressure, RV dilitation with decreased contractility and moderate to severe pulmonary hypertension. These findings are all consistent with RV strain related to the patient's bilateral pulmonary emboli. That being said, the patient does not have saddle emboli and this situation has likely already been going on for a while without any hemodynamic compromise although the patient is clearly short of breath. It is reasonable to monitor this patient carefully with the understanding that if she decompensated she should receive thrombolytics. * Begin a NOAC, I.E Xarelto 15mg BID for 21 days and then 20mg daily. * Improve IV hydration. This patient will be preload dependent. * The patient also has a lung nodule. Consideration should be given to a hypercoagulable state. Continue telemetry? Yes
[2017-07-26 16:31] VITALS: BP 130/70
[2017-07-26 20:58] VITALS: BP 122/84
[2017-07-26 21:58] VITALS: BP 126/88
[2017-07-27 07:13] VITALS: BP 116/62
--- NOTE | 2017-07-27 07:38 | PN- Housestaff ---
Stanley CARLOS,Aureliano 07/27/17 0738: Subjective Follow-up For: VTE Asthma exacerbation Subjective: Patient is seen and examined at bedside. He does not endorse any increased shortness of breath, chest pain, or palpitation. She states "I don't think I'm ready to go home today I would like to walk around without the nasal oxygen and see how I do". No acute overnight event reported by nursing staff. Review of Systems Constitutional: Reports: no symptoms. Objective Last 24 Hrs of Vital Signs/I&O Vital Signs Date Time Temp Pulse Resp B/P B/P Pulse O2 O2 Flow FiO2 Mean Ox Delivery Rate 07/27 1905 94 Room Air 07/27 1435 98.2 108 20 132/78 93 Nasal 1.0L Cannula 07/27 1400 Room Air 07/27 0909 98 Nasal 2.0L Cannula 07/27 0800 Nasal 2.0L Cannula 07/27 0713 97.7 94 12 116/62 98 Nasal 2.0L Cannula 07/27 0600 96 Nasal 1.0L Cannula 07/27 0000 96 Nasal 2.0L Cannula 07/26 2200 96 Nasal 2.0L Cannula 07/26 2158 97.8 110 20 126/88 99 07/26 2130 98 Nasal 2.0L Cannula 07/26 2058 98.2 109 20 122/84 97 Intake & Output 07/27 1600 07/27 0800 07/27 0000 Intake Total 821.3 110 650 Output Total Balance 821.3 110 650 Intake, IV 321.3 10 150 Intake, Oral 500 100 500 Number 1 Bowel Movements Physical Exam General Appearance: Alert, Oriented X3, Cooperative Lungs: Clear to Auscultation, Normal Air Movement Abdomen: Normal Bowel Sounds, Soft, No Tenderness Extremities: No Clubbing, No Cyanosis, No Tenderness/Swelling Assessment/Plan Assessment: This is a 61-year-old pleasant lady with a past medical history of asthma who presented with symptoms of cough, shortness of breath found to have radiological evidence of bilateral pulmonary embolism with left prominence tomorrow DVT extending to the left popliteal vein. He was also presented with symptoms of asthma exacerbation. Impression 1. Bilateral Pulmonary Emboli 2. DVT of left leg 3. Asthma Exacerbation 4. Microcytic Anemia 5. Right Upper Lobe Lung Nodule (1.3cm) Plan: * Taper off 02 supplementation appropriately * Continue SC Lovenox for a total of 5 days. * Transition to NOAC after 5 days. Cardiology reccomended Xarelto however per case management, apixaban is cost effective based in patient insurance. * Keep patient well hydrated as she is preload dependent. * Monitor for signs of hemodynamic compromise. * Continue Prednisone taper and IV azithromycin for asthma exacerbation. * Continue Ferrous sulphate for microcytic anemia * Outpatient follow up with vascular for possible IVC filter * Outpatient follow up of suspicious pulmonary nodule for futher work up if desired by the patient. * EGD/colonoscopy consideration as outpatient for microcytic anemia Problem List: 1. Pulmonary embolism 2. Pulmonary nodule Pain Ratin Pain Location: None Pain Goal: Remain pain free Pain Plan: per pathway Tomorrow's Labs & Rationales: cbc Mac CARLOS,Humberto 07/27/17 1850: Attending MD Review Statement Attending Statement Attending MD Statement: examined this patient, discuss w/resident/PA/NETWORK SYSTEMS INTEGRATOR, agreed w/resident/PA/NETWORK SYSTEMS INTEGRATOR, discussed with family, reviewed EMR data (avail), discussed with nursing, discussed with case mgmt, amended to note Attending Assessment/Plan: Patient seen and examined. EHR reviewed. Patient reports feeling better compared to presentation. denies chest pain or SOB. Denies LE pain. On exam lungs are clear bilaterally. HSe rLeft lower extremity is swollen compared to the right. Continue anitbiotic therapy as recommended by the hematology service.
[2017-07-27 07:49] LABS: ABSOLUTE BASOPHIL COUNT 0 /CUMM (0.0-0.2); ABSOLUTE EOSINOPHIL COUNT 0 /CUMM (0.0-0.7); ABSOLUTE GRANULOCYTE CT 10.5 /CUMM (1.4-6.5); ABSOLUTE LYMPH COUNT 2.7 /CUMM (1.2-3.4); ABSOLUTE MONOCYTE COUNT 0.8 /CUMM (0.10-0.60); BASOPHIL % 0.2 % (0.0-2.0); EOSINOPHIL % 0 % (0-5); GRANULOCYTE % 74.9 % (42.2-75.2); HEMATOCRIT 23.9 % (37-47); MEAN CORPUSCULAR HGB 22.8 PG (27.0-31.0); MEAN CORPUSCULAR HGB CONC 31.3 G/DL (33.0-37.0); MEAN CORPUSCULAR VOLUME 72.6 FL (81.0-99.0); MEAN PLATELET VOLUME 9.3 FL (7.4-10.4); PLATELET COUNT 286 /CUMM (130-400); RBC DISTRIBUTION WIDTH 18.1 % (11.5-14.5); RED BLOOD CELL CT 3.29 /CUMM (4.20-5.40)
--- NOTE | 2017-07-27 07:51 | Transfer of Care Summary ---
Hospital Course Course Hospital Course: HPI: Ms Seo is a 61 year old female with a PMH of asthma and psoriasis who presented to the ER complaining of cough and shortness of breath. Patient's symptoms had been ongoing for the past month. She initially went to an urgent care and was prescribed a course of azithromycin and prednisone with some improvement. However, her symptoms persisted and she began to experience progressive shortness of breath and weakness to the point of immobility for the past 4-5 days prior to admission. In the ED she was found to have bilateral PE on CTA and DVT in left leg on Doppler. She was started on IV heparin. Interval Events: Bilateral Pulmonary Emboli: CTA showed evidence of bilateral PE. She was initially started on IV heparin. A Doppler U/S of the lower extremity revealed a DVT extending from the left common femoral vein to the popliteal vein. She was admitted to the ICU due to concerns of hemodynamic instability as her blood pressure was on the lower side and given her clinical condition there was a concern of rapid deterioration. She was evaluated by vascular surgery with recommendation to transfer to [facility] for possible tPA or thrombectomy if she becomes unstable. However, she has had a reasonably stable course in the ICU. She was evaluated by Hematology and recommended to be started on SC Lovenox and maintained on for at least 5 days before transitioned to NOAC. Her kidney function is good and AC with any agent will suffice. She had an echo which showed normal LVEF of 70%, but moderately enlarged RV along with decreased contractility and moderate to severe pulmonary hypertension. Per cardiology she should be well hydrated as she is preload dependent. Asthma Exacerbation: She was initially started on IV Solu-Medrol along with oxygen supplementation to target O2 concentration > 92%. She has been on 2L via [place]. Yesterday her Solu- Medrol was discontinued and started on a Prednisone taper from 40mg every 2 days. Her IV Azithromycin can be continued for a total of 3-5 days. Microcytic Anemia: Her MCV <80 with an elevated RDW. Iron studies suggestive of microcytic anemia. She was started on daily ferrous sulphate daily. Diet: Regular DVT Prophylaxis: SC Lovenox Code: Full Code Assessment/Plan: Assessment: 1. Bilateral Pulmonary Emboli 2. DVT of left leg 3. Asthma Exacerbation 4. Microcytic Anemia 5. Right Upper Lobe Lung Nodule Plan: * Continue SC Lovenox for a total of 5 days. * Transition to NOAC after that * Keep patient well hydrated as she is preload dependent. * Monitor for signs of hemodynamic compromise. * Continue Prednisone taper and IV azithromycin for asthma exacerbation. * Continue Ferrous sulphate for microcytic anemia * Outpatient follow up with vascular for possible IVC filter * Outpatient follow up of suspicious pulmonary nodule for futher work up if desired by the patient. * EGD/colonoscopy consideration as outpatient for microcytic anemia * Monitor for signs of hemodynamic compromise. * Continue Prednisone taper and IV azithromycin for asthma exacerbation. * Continue Ferrous sulphate for microcytic anemia * Outpatient follow up with vascular for possible IVC filter * Outpatient follow up of suspicious pulmonary nodule for futher work up if desired by the patient.
--- NOTE | 2017-07-27 09:18 | PN- Hematology ---
Subjective Subjective: She is feeling well without any new symptoms. Breathing is stable. She denies any new pain. She has no fever or chills. She has no nausea or vomiting. She denies any bleeding. Review of Systems Constitutional: Denies: chills, fever, weakness. Cardiovascular: Denies: chest pain. Gastrointestinal: Denies: abdominal pain, melena, bloody stool. Genitourinary: Denies: dysuria, hematuria. Musculoskeletal: Denies: back pain. All Other Systems: Reviewed and Negative Objective Vital Signs and I&Os Vital Signs Date Time Temp Pulse Resp B/P B/P Pulse O2 O2 Flow FiO2 Mean Ox Delivery Rate 07/27 0713 97.7 94 12 116/62 98 Nasal 2.0L Cannula 07/27 0600 96 Nasal 1.0L Cannula 07/27 0000 96 Nasal 2.0L Cannula 07/26 2200 96 Nasal 2.0L Cannula 07/26 2158 97.8 110 20 126/88 99 07/26 2130 98 Nasal 2.0L Cannula 07/26 2058 98.2 109 20 122/84 97 07/26 1631 97 Nasal 2.0L Cannula 07/26 1631 97.3 109 18 130/70 97 Nasal 2.0L Cannula 07/26 1400 96 Nasal 2.0L Cannula 07/26 1007 96 Nasal 2.0L Cannula Intake & Output 07/27 1600 07/27 0800 07/27 0000 07/26 1600 07/26 0800 07/26 0000 Intake Total 314 841 4795 1619 869.2 Output Total 450 600 300 Balance 110 018 332 6167 569.2 Intake, IV 10 787 121 5233 629.2 Intake, Oral 100 500 500 240 240 Output, Urine 450 600 300 Physical Exam: General Appearance: well developed/nourished, no apparent distress, alert, awake , comfortable Head: atraumatic, normal appearance Eyes: Bilateral: PERRL, EOMI. Ears, Nose, Throat: normal pharynx, normal ENT inspection, On 2L NC Respiratory: normal breath sounds, chest non-tender, no respiratory distress, decreased breath sounds Cardiovascular: edema (2+ LLE), tachycardia Gastrointestinal: normal bowel sounds, soft, non-tender Extremities: 2+ LLE edema Neurologic/Psych: awake, alert, oriented x 3 Cranial Nerves: normal hearing, normal speech, PERRL Skin: normal color, warm/dry Current Medications: Current Medications Sig/José Miguel Start time Last Medication Dose Route Stop Time Status Admin Albuterol Sulfate 3 ML BID 07/25 1145 AC 07/26 INH 2130 Apixaban 5 MG BID 08/02 1000 CAN PO 09/01 220 Apixaban 10 MG BID 07/26 1000 CAN PO 09/02 0959 Apixaban 10 MG BID 07/26 1000 CAN PO 08/01 220 Azithromycin 500 MG DAILY 07/25 1000 AC 07/27 Dextrose/Water 250 ML IV 0757 Budesonide/ 2 PUF BID 07/25 1000 AC 07/27 Formoterol Fumarate INH 0757 Docusate Sodium 100 MG DAILY NEEDED PRN 07/26 1045 AC 07/26 PO 1225 Enoxaparin Sodium 150 MG DAILY 07/26 1017 AC 07/27 SC 0757 Ferrous Sulfate 325 MG DAILY 07/26 1034 AC 07/27 PO 0756 Guaifenesin 600 MG Q12 07/25 1000 AC 07/27 PO 0756 Heparin Sodium 25,000 UNIT Q24H 07/24 2015 DC 07/25 (Porcine) IV 2129 Sodium Chloride 500 ML Ipratropium [place] 2.5 ML BID 07/25 1142 AC 07/26 INH 2130 Nystatin 1 NAZARIO BID 07/26 1014 DC TOP Nystatin 1 NAZARIO TID 07/26 1000 AC 07/27 TOP 0756 Omeprazole 40 MG DAILY AC 07/27 0700 AC 07/27 PO 0546 Omeprazole 20 MG 2200 07/25 2200 DC 07/26 PO 07/26 2200 2109 Polyethylene Glycol 17 GM DAILY 07/26 1040 AC 07/27 PO 0755 Prednisone 10 MG DAILY 08/01 1000 AC PO 08/03 0959 Prednisone 20 MG DAILY 07/30 1000 AC PO 08/01 0959 Prednisone 30 MG DAILY 07/28 1000 AC PO 07/30 0959 Prednisone 40 MG DAILY 07/26 1000 CAN PO 08/03 0959 Prednisone 40 MG DAILY 07/26 1000 AC / PO 07/28 0959 0756 Sodium Chloride 1,000 ML Q10H 07/25 1530 DC 07/26 IV 07/26 1129 0659 Results Last 24 Hours of Lab Results: Laboratory Tests 07/27 07/26 0705 1400 Chemistry Sodium (137 - 145 mmol/L) 143 Potassium (3.5 - 5.1 mmol/L) 3.7 Chloride (98 - 107 mmol/L) 105 Carbon Dioxide (22 - 30 mmol/L) 27 Anion Gap (5 - 16) 12 BUN (7 - 17 mg/dL) 12 Creatinine (0.5 - 1.0 mg/dL) 0.6 Estimated GFR (>60 ml/min) > 60 Glucose (65 - 99 mg/dL) 85 Calcium (8.4 - 10.2 mg/dL) 8.9 Phosphorus (2.5 - 4.5 mg/dL) 3.5 Magnesium (1.6 - 2.3 mg/dL) 2.2 Total Bilirubin (0.2 - 1.3 mg/dL) 0.2 AST (14 - 36 U/L) 44 H ALT (9 - 52 U/L) 63 H Albumin (3.5 - 5.0 g/dL) 2.6 L Coagulation APTT Cancelled Hematology CBC w Diff NO MAN DIFF REQ WBC (4.8 - 10.8 /CUMM) 14.0 H RBC (4.20 - 5.40 /CUMM) 3.29 L Hgb (12.0 - 16.0 G/DL) 7.5 L Hct (37 - 47 %) 23.9 L MCV (81.0 - 99.0 FL) 72.6 L MCH (27.0 - 31.0 PG) 22.8 L MCHC (33.0 - 37.0 G/DL) 31.3 L RDW (11.5 - 14.5 %) 18.1 H Plt Count (130 - 400 /CUMM) 286 MPV (7.4 - 10.4 FL) 9.3 Gran % (42.2 - 75.2 %) 74.9 Lymphocytes % (20.5 - 51.1 %) 19.2 L Monocytes % (1.7 - 9.3 %) 5.7 Eosinophils % (0 - 5 %) 0 Basophils % (0.0 - 2.0 %) 0.2 Absolute Granulocytes (1.4 - 6.5 /CUMM) 10.5 H Absolute Lymphocytes (1.2 - 3.4 /CUMM) 2.7 Absolute Monocytes (0.10 - 0.60 /CUMM) 0.8 H Absolute Eosinophils (0.0 - 0.7 /CUMM) 0 Absolute Basophils (0.0 - 0.2 /CUMM) 0 Assessment/Plan Assessment/Recommendations: Ms. Seo is a 61-year-old female with asthma who presented to the [facility] with 4 weeks of respiratory symptoms. She reports 4 weeks of dyspnea with exertion progressing to dyspnea at rest, cough, and lower extremity edema. CTA of the chest was done and noted multifocal pulmonary embolism and lower extremity doppler ultrasound demonstrated deep venous thrombosis extending from the left common femoral vein to the popliteal vein. There was a noncompressible thrombus within the proximal left greater saphenous vein. She was started on a heparin drip. Thrombosis seemed to be unprovoked. She'll need hypercoagulable workup as an outpatient. She'll remain on heparin drip and transition to oral anticoagulant on discharge. She may follow-up a few weeks after discharge. Given thrombus burden, she did have low molecular weight heparin for at least 5 days before starting oral anticoagulant. Iron study demonstrated likely combination of iron deficiency and chronic disease. She should be started on oral iron supplement 3 times a day. She should have GI workup as an outpatient. Her pulmonary nodule is of unclear etiology. She is a nonsmoker. This should be rechecked in a few months. Pulmonary embolism with DVT: -UFH and transition to oral anticoagulant -UFH/LMWH for 5 days prior to starting oral anticoagulant -Hypercoagulable work up as outpatient -Follow up 2-4 weeks after discharge Microcytic anemia: -Start ferrous sulfate 325 mg 3 times a day -GI work up: Colonoscopy +/- EGD (never had colonoscopy, age >50, anemia) Leukocytosis: -Monitor for now Pulmonary nodules: -Repeat imaging as outpatient Please call [phone] with any questions or concern. Problem List: 1. Pulmonary nodule 2. Anemia 3. Pulmonary embolism 4. Leukocytosis (leucocytosis)
--- NOTE | 2017-07-27 12:34 | PN- Pulmonary ---
Subjective HPI/Critical Care Issues: Patient has been transferred from the intensive care unit she has no overnight events and she feels much better overall. Objective Current Medications: Current Medications Sig/José Miguel Start time Last Medication Dose Route Stop Time Status Admin Albuterol Sulfate 3 ML BID 07/25 1145 AC 07/27 INH 0905 Azithromycin 500 MG DAILY 07/25 1000 AC 07/27 Dextrose/Water 250 ML IV 0757 Budesonide/ 2 PUF BID 07/25 1000 AC 07/27 Formoterol Fumarate INH 0757 Docusate Sodium 100 MG DAILY NEEDED PRN 07/26 1045 AC 07/26 PO 1225 Enoxaparin Sodium 150 MG DAILY 07/26 1017 AC 07/27 SC 0757 Ferrous Sulfate 325 MG DAILY 07/26 1034 AC 07/27 PO 0756 Guaifenesin 600 MG Q12 07/25 1000 AC 07/27 PO 0756 Ipratropium [place] 2.5 ML BID 07/25 1142 AC 07/27 INH 0904 Nystatin 1 NAZARIO TID 07/26 1000 AC 07/27 TOP 0756 Omeprazole 40 MG DAILY AC 07/27 0700 AC 07/27 PO 0546 Omeprazole 20 MG 2200 07/25 2200 DC 07/26 PO 07/26 2200 2109 Polyethylene Glycol 17 GM DAILY 07/26 1040 AC 07/27 PO 0755 Prednisone 10 MG DAILY 08/01 1000 AC PO 08/03 0959 Prednisone 20 MG DAILY 07/30 1000 AC PO 08/01 0959 Prednisone 30 MG DAILY 07/28 1000 AC PO 07/30 0959 Prednisone 40 MG DAILY 07/26 1000 AC 07/27 PO 07/28 0959 0756 Vital Signs & I&O Last 24 Hrs of Vitals and I&O: Vital Signs Date Time Temp Pulse Resp B/P B/P Pulse O2 O2 Flow FiO2 Mean Ox Delivery Rate 07/27 0809 98 Nasal 2.0L Cannula 07/27 08 Nasal 2.0L Cannula 07/27 712 97.7 94 12 116/62 98 Nasal 2.0L Cannula 07/27 599 96 Nasal 1.0L Cannula 07/27 0000 96 Nasal 2.0L Cannula 07/26 2199 96 Nasal 2.0L Cannula 07/26 2157 97.8 110 20 126/88 99 07/26 2129 98 Nasal 2.0L Cannula 07/26 2057 98.2 109 20 122/84 97 02/05 1631 97 Nasal 2.0L Cannula 07/26 1631 97.3 109 18 130/70 97 Nasal 2.0L Cannula 07/26 1400 96 Nasal 2.0L Cannula Intake & Output 07/27 1600 07/27 0800 07/27 0000 Intake Total 110 650 Output Total Balance 110 650 Intake, IV 10 150 Intake, Oral 100 500 Exam Other Physical Findings: Generally - Awake, alert Head and neck - normocephalic, atraumatic, EOMI grossly intact Cardiovascular - S1, S2 Lungs - improved rhonchi Abdomen - Bowel sounds positive, soft, non-tender Extremities - trace edema Results Last 24 Hrs of Lab Results: Laboratory Tests 07/27/17 0705: Anion Gap 12, Estimated GFR > 60, Glucose 85, Calcium 8.9, Phosphorus 3.5, Magnesium 2.2, Total Bilirubin 0.2, AST 44 H, ALT 63 H, Albumin 2.6 L, CBC w Diff NO MAN DIFF REQ, RBC 3.29 L, MCV 72.6 L, MCH 22.8 L, MCHC 31.3 L, RDW 18.1 H, MPV 9.3, Gran % 74.9, Lymphocytes % 19.2 L, Monocytes % 5.7, Eosinophils % 0, Basophils % 0.2, Absolute Granulocytes 10.5 H, Absolute Lymphocytes 2.7, Absolute Monocytes 0.8 H, Absolute Eosinophils 0, Absolute Basophils 0 07/26/17 1400: APTT Cancelled Impression/Plan Impression/Plan Impression/Plan: Impression 61 year old woman * admitted to the ICU secondary to hemodynamic instability secondary to VTE -DVT extending Left CFV to the popliteal vein -noncompressible thrombus proximal left greater saphenous vein -multifocal bilateral pulmonary emboli * 1.3cm RUL nodule - unclear etiology - will require follow up * asthma exacerbation triggered by acute illness * leukocytosis Plan -vascular surgery consultation appreciated - no recs for IVC filter - significant clot burden in both pulmonary and lower extremity vessels - A/C is sufficient -cardiology consultation appreciated -post discharge will require follow up for 1.3cm RUL nodule -TRC/Nebs -prednisone 40x2, 30x2, 20x2, 10x2 then stop -pt on Advair at home -given leukocytosis cont zithromax - however likely inflammatory vs steroid induced -hematology consultation appreciated - microcytic anemia workup - a/c per heme, outpt anemia workup (colonoscopy) DVT prophylaxis at all times
[2017-07-27 14:35] VITALS: BP 132/78
--- NOTE | 2017-07-27 17:20 | PN- Cardiology ---
Subjective Subjective: * Patient ambulated a little today with mild shortness of breath. * sinus tachycardia * WBC count is 14 with decreased H/H Objective Vital Signs and I&Os Vital Signs Date Time Temp Pulse Resp B/P B/P Pulse O2 O2 Flow FiO2 Mean Ox Delivery Rate 07/27 1435 98.2 108 20 132/78 93 Nasal 1.0L Cannula 07/27 1400 Room Air 07/27 0909 98 Nasal 2.0L Cannula 07/27 08 Nasal 2.0L Cannula 07/27 07 97.7 94 12 116/62 98 Nasal 2.0L Cannula 07/27 06 96 Nasal 1.0L Cannula 07/27 0000 96 Nasal 2.0L Cannula 07/26 2199 96 Nasal 2.0L Cannula 07/26 2157 97.8 110 20 126/88 99 07/26 2130 98 Nasal 2.0L Cannula 07/26 2057 98.2 109 20 122/84 97 Intake & Output 07/27 1600 07/27 0800 07/27 0000 07/26 1600 07/26 0800 07/26 0000 Intake Total 821.3 161 831 5857 1619 869.2 Output Total 450 600 300 Balance 821.3 110 930 931 9238 569.2 Intake, IV 321.3 10 370 677 5871 629.2 Intake, Oral 500 100 500 500 240 240 Number 1 Bowel Movements Output, Urine 450 600 300 Physical Exam: General: WD/overweight female in NAD; alert and oriented x 3 HEENT: NC/AT, PERRL, EOMI Neck: no JVD, no carotid bruit Lungs: no crackles with scant wheezing bilaterally Heart: Tachycardic and regular ABdomen: soft, obese, NT, +ve bowel sounds Extemities: 1+ bilateral leg edema Assessment/Plan Assessment/Plan * This patient had evidence of tachycardia that is likely due to a combination of her bilateral PE's and anemia. Would pursue an anemia workup including a reticulocyte count and stool guaiac to observe for evidence of bleeding. Follow H/H. * Begin a NOAC, I.E Xarelto 15mg BID for 21 days and then 20mg daily. * Maintain adequate oral hydration. This patient will be preload dependent. * The patient also has a lung nodule. Consideration should be given to a hypercoagulable state. Continue telemetry? Yes
[2017-07-27 21:54] VITALS: BP 116/54
[2017-07-28 06:39] VITALS: BP 138/82
--- NOTE | 2017-07-28 07:14 | PN- Housestaff ---
See Addendum Subjective Follow-up For: VTE Subjective: Seen and examined at bedside. Seated comfortablet having breakfast. Denies fever /chills, increased sob, cp/palpitatio, or increased leg pain. Ambulated comfortably without pain yesterday. Feels comfortably to go home today. Review of Systems Constitutional: Reports: see HPI. Objective Last 24 Hrs of Vital Signs/I&O Vital Signs Date Time Temp Pulse Resp B/P B/P Pulse O2 O2 Flow FiO2 Mean Ox Delivery Rate 07/28 0849 96 Room Air Room Air 07/28 0800 94 Room Air Room Air 07/28 0639 98.5 102 20 138/82 93 Room Air 07/28 0600 93 Room Air Room Air 07/28 0000 94 Room Air Room Air 07/27 2200 94 Room Air Room Air 07/27 2154 98.8 109 16 116/54 94 Nasal Cannula 07/27 1905 94 Room Air 07/27 1435 98.2 108 20 132/78 93 Nasal 1.0L Cannula Intake & Output 07/28 1600 07/28 0800 07/28 0000 Intake Total 100 Output Total Balance 100 Intake, Oral 100 Physical Exam General Appearance: Cooperative Cardiovascular: Regular Rate, Normal S1, Normal S2 Lungs: Clear to Auscultation, Normal Air Movement Abdomen: Normal Bowel Sounds, Soft, No Tenderness Extremities: No Edema, No Tenderness/Swelling Current Medications: Current Medications Sig/José Miguel Start time Last Medication Dose Route Stop Time Status Admin Albuterol Sulfate 3 ML BID 07/25 1145 DCD 07/28 INH 0826 Azithromycin 500 MG DAILY 07/25 1000 DCD 07/28 Dextrose/Water 250 ML IV 0931 Budesonide/ 2 PUF BID 07/25 1000 DCD 02 Formoterol Fumarate INH 0924 Docusate Sodium 100 MG DAILY NEEDED PRN 07/26 1045 DCD 07/26 PO 1225 Enoxaparin Sodium 150 MG DAILY 07/26 1017 DCD 07/28 SC 0923 Ferrous Sulfate 325 MG DAILY 07/26 1034 DCD 07/28 PO 0923 Guaifenesin 600 MG Q12 07/25 1000 DCD 07/28 PO 0923 Ipratropium [place] 2.5 ML BID 07/25 1142 DCD 07/28 INH 0826 Nystatin 1 NAZARIO TID 07/26 1000 DCD 07/28 TOP 0935 Omeprazole 40 MG 1700 07/27 2014 DCD 07/27 PO 2100 Omeprazole 40 MG DAILY AC 07/27 0700 DC 07/27 PO 0546 Polyethylene Glycol 17 GM DAILY 07/26 1040 DCD 07/27 PO 0755 Prednisone 10 MG DAILY 08/01 1000 DCD PO 08/03 0959 Prednisone 20 MG DAILY 07/30 1000 DCD PO 08/01 0959 Prednisone 30 MG DAILY 07/28 1000 DCD 07/28 PO 07/30 0959 0923 Prednisone 40 MG DAILY 07/26 1000 DC 07/27 PO 07/28 0959 0756 Last 24 Hrs of Lab/Doug Results Last 24 Hrs of Labs/Mics: Laboratory Tests 07/28/17 0655: CBC w Diff NO MAN DIFF REQ, RBC 3.38 L, MCV 72.5 L, MCH 22.4 L, MCHC 30.9 L, RDW 18.5 H, MPV 9.0, Gran % 66.2, Lymphocytes % 26.9, Monocytes % 6.4, Eosinophils % 0.3, Basophils % 0.2, Absolute Granulocytes 7.9 H, Absolute Lymphocytes 3.2, Absolute Monocytes 0.8 H, Absolute Eosinophils 0, Absolute Basophils 0 Assessment/Plan Assessment: This is a 61-year-old pleasant lady with a past medical history of asthma who presented with symptoms of cough, shortness of breath found to have radiological evidence of bilateral pulmonary embolism with left prominence tomorrow DVT extending to the left popliteal vein. He was also presented with symptoms of asthma exacerbation. Impression 1. Bilateral Pulmonary Emboli 2. DVT of left leg 3. Asthma Exacerbation 4. Microcytic Anemia 5. Right Upper Lobe Lung Nodule (1.3cm) Plan: Stable, saturating well on RA above 90% even with moderate ambulation. Will discharge patient with 2 more day of LMWH to complete a 5 day initial treatment for VTE and then apixaban 10 mg bid for 1 week followed by 5 mg bid therafter ( this is the reccomendation per hematology based on the clot burden). Pt has been given a requsition for a repeat doppler u/s of her affected left leg to asses interval change of the clot burden, this is to be done in 2weeks. She is also to follow up with bi analyst for workup for her unprovoked VTE (as of now no obvious cause of her VTE was identified). She has also been given a referral with GI for an overdue age appropriate colonoscopy, and in the setting of ALIX and a VTE, GI malignancy will need to be ruled out. Regarding her Right lobe nodule, she has been intructed to follow up with her PCP for subsequent imaging surveillance. This information will also be relayed through discharge summary to her PCP. Problem List: 1. Pulmonary embolism 2. Pulmonary nodule Pain Ratin Pain Location: none Pain Goal: Remain pain free Pain Plan: per pathway Tomorrow's Labs & Rationales: none-discharge
--- NOTE | 2017-07-28 07:53 | PN- Hematology ---
Subjective Subjective: She feels generally well. Breathing is improving. She is able to ambulate around a little bit. Review of Systems Constitutional: Denies: chills, fever, weakness. Cardiovascular: Denies: chest pain. Respiratory: Reports: short of breath. Gastrointestinal: Denies: abdominal pain, melena, bloody stool. Genitourinary: Denies: hematuria. Musculoskeletal: Denies: back pain. Neurological/Psychological: Denies: confusion. Hematologic/Endocrine: Denies: bruising, bleeding. All Other Systems: Reviewed and Negative Objective Vital Signs and I&Os Vital Signs Date Time Temp Pulse Resp B/P B/P Pulse O2 O2 Flow FiO2 Mean Ox Delivery Rate 07/28 0639 98.5 102 20 138/82 93 Room Air 07/28 0600 93 Room Air Room Air 07/28 0000 94 Room Air Room Air 07/27 2200 94 Room Air Room Air 07/27 2154 98.8 109 16 116/54 94 Nasal Cannula 07/27 1905 94 Room Air 07/27 1435 98.2 108 20 132/78 93 Nasal 1.0L Cannula 07/27 1400 Room Air 07/27 0909 98 Nasal 2.0L Cannula 07/27 0800 Nasal 2.0L Cannula Intake & Output 07/28 0800 07/28 0000 07/27 1600 07/27 0800 07/27 0000 07/26 1600 Intake Total 100 821.3 266 083 5154 Output Total 450 Balance 100 821.3 110 650 990 Intake, IV 321.3 10 150 940 Intake, Oral 100 500 100 500 500 Number 1 Bowel Movements Output, Urine 450 Physical Exam: General Appearance: well developed/nourished, no apparent distress, alert, awake , comfortable Head: atraumatic, normal appearance Respiratory: normal breath sounds, chest non-tender, no respiratory distress, decreased breath sounds Cardiovascular: tachycardia Gastrointestinal: normal bowel sounds, soft, non-tender Extremities: 1+ LLE edema Neurologic/Psych: awake, alert, oriented x 3 Cranial Nerves: normal hearing, normal speech, PERRL Skin: normal color, warm/dry Current Medications: Current Medications Sig/José Miguel Start time Last Medication Dose Route Stop Time Status Admin Albuterol Sulfate 3 ML BID 07/25 1145 AC 07/27 INH 1905 Azithromycin 500 MG DAILY 07/25 1000 AC 07/27 Dextrose/Water 250 ML IV 0757 Budesonide/ 2 PUF BID 07/25 1000 AC 07/27 Formoterol Fumarate INH 2100 Docusate Sodium 100 MG DAILY NEEDED PRN 07/26 1045 AC 07/26 PO 1225 Enoxaparin Sodium 150 MG DAILY 07/26 1017 AC 07/27 SC 0757 Ferrous Sulfate 325 MG DAILY 07/26 1034 AC 07/27 PO 0756 Guaifenesin 600 MG Q12 07/25 1000 AC 07/27 PO 2059 Ipratropium [place] 2.5 ML BID 07/25 1142 AC 07/27 INH 1905 Nystatin 1 NAZARIO TID 07/26 1000 AC 07/27 TOP 2100 Omeprazole 40 MG 1700 07/27 2015 AC 07/27 PO 2100 Omeprazole 40 MG DAILY AC 07/27 0700 DC 07/27 PO 0546 Polyethylene Glycol 17 GM DAILY 07/26 1040 AC 07/27 PO 0755 Prednisone 10 MG DAILY 08/01 1000 AC PO 08/03 0959 Prednisone 20 MG DAILY 07/30 1000 AC PO 08/01 0959 Prednisone 30 MG DAILY 07/28 1000 AC PO 07/30 0959 Prednisone 40 MG DAILY 07/26 1000 AC 07/27 PO 07/28 0959 0756 Results Last 24 Hours of Lab Results: Laboratory Tests 07/28 0655 Hematology CBC w Diff Pending WBC Pending RBC Pending Hgb Pending Hct Pending MCV Pending MCH Pending MCHC Pending RDW Pending Plt Count Pending MPV Pending Assessment/Plan Assessment/Recommendations: Ms. Seo is a 61-year-old female with asthma who presented to the [facility] with 4 weeks of respiratory symptoms. She reports 4 weeks of dyspnea with exertion progressing to dyspnea at rest, cough, and lower extremity edema. CTA of the chest was done and noted multifocal pulmonary embolism and lower extremity doppler ultrasound demonstrated deep venous thrombosis extending from the left common femoral vein to the popliteal vein. There was a noncompressible thrombus within the proximal left greater saphenous vein. She was started on a heparin drip. Thrombosis seemed to be unprovoked. She'll need hypercoagulable workup as an outpatient. She is doing on the enoxaparin. This will be day 4 of UFH/LMWH. Symptomatically she is improved. She will likely be able to transition to oral anticoagulant after tomorrow. She is tolerating her iron. She is always getting iron once a day. I would recommend increasing it to 3 times a day. She should have GI workup as an outpatient. Her pulmonary nodule should also be evaluated as an outpatient. Her leukocytosis is improving. Sputum culture was positive for H influenzae and yeast. She is on antibiotics. Pulmonary embolism with DVT: -UFH/LMWH for 5 days prior to starting oral anticoagulant -Hypercoagulable work up as outpatient -Follow up 2-4 weeks after discharge Microcytic anemia: -Increase her ferrous sulfate to 325 mg 3 times a day -GI work up: Colonoscopy +/- EGD (never had colonoscopy, age >50, anemia) Pulmonary nodules: -Repeat imaging as outpatient Please call [phone] with any questions or concern. Problem List: 1. Leukocytosis (leucocytosis) 2. Pulmonary embolism 3. Anemia 4. Pulmonary nodule
[2017-07-28 08:13] LABS: ABSOLUTE BASOPHIL COUNT 0 /CUMM (0.0-0.2); ABSOLUTE EOSINOPHIL COUNT 0 /CUMM (0.0-0.7); ABSOLUTE GRANULOCYTE CT 7.9 /CUMM (1.4-6.5); ABSOLUTE LYMPH COUNT 3.2 /CUMM (1.2-3.4); ABSOLUTE MONOCYTE COUNT 0.8 /CUMM (0.10-0.60); BASOPHIL % 0.2 % (0.0-2.0); EOSINOPHIL % 0.3 % (0-5); GRANULOCYTE % 66.2 % (42.2-75.2); HEMATOCRIT 24.5 % (37-47); MEAN CORPUSCULAR HGB 22.4 PG (27.0-31.0); MEAN CORPUSCULAR HGB CONC 30.9 G/DL (33.0-37.0); MEAN CORPUSCULAR VOLUME 72.5 FL (81.0-99.0); PLATELET COUNT 293 /CUMM (130-400); RBC DISTRIBUTION WIDTH 18.5 % (11.5-14.5); RED BLOOD CELL CT 3.38 /CUMM (4.20-5.40)
[2017-07-28] MEDS ORDERED: PREDNISONE10 M2 PO ×2 (09:40→10:03)
[2017-07-28] MEDS ORDERED: FERROUS SULFAT325 M2 PO (09:40)
[2017-07-28] MEDS ORDERED: ELIQUIS5 M2 PO ×2 (09:40→10:00)
[2017-07-28] MEDS ORDERED: LOVENOX100 MG/1 M SC ×2 (09:40→10:03)
--- NOTE | 2017-07-28 09:52 | Patient Discharge Instructions ---
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) Please make an appointment for a colonoscopy (Dr Mendenhall information has been provided for you) You have a lung nodule in your lung, please follow up with your primary care on how how often you will need to have imaging Acute Coronary Syndrome Inclusion Criteria At DC or during hospital stay patient has or had the following: ACS DIAGNOSIS No Discharge Core Measures Meds if any: Prescribed or Continued at Discharge Meds if any: NOT Prescribed or Continued at Discharge Congestive Heart Failure Inclusion Criteria At DC or during hospital stay patient has or had the following: CHF DIAGNOSIS No Discharge Core Measures Meds if any: Prescribed or Continued at Discharge Meds if any: NOT Prescribed or Continued at Discharge Cerebrovascular accident Inclusion Criteria At DC or during hospital stay patient has or had the following: CVA/TIA Diagnosis No Discharge Core Measures Meds if any: Prescribed or Continued at Discharge Meds if any: NOT Prescribed or Continued at Discharge Venous thromboembolism Inclusion Criteria VTE Diagnosis No VTE Type NONE VTE Confirmed by (Test) NONE Discharge Core Measures - Per Current guidelines, there needs to be overlap - treatment for the first 5 days of Warfarin therapy. - If discharged on Warfarin prior to 5 days of - overlap therapy, the patient will need to be - assessed for post discharge needs including - *Post discharge parental anticoagulation - *Warfarin and/or parental anticoagulation education - *Follow up date to check INR post discharge At least 5 days overlap therapy as Inpatient No Meds if any: Prescribed or Continued at Discharge Note: Overlap Therapy is Warfarin and Anticoagulant Meds if any: NOT Prescribed or Continued at Discharge
--- NOTE | 2017-07-28 11:02 | PN- Pulmonary ---
Subjective HPI/Critical Care Issues: pt seen and examined doing well off o2 feels better Objective Current Medications: Current Medications Sig/José Miguel Start time Last Medication Dose Route Stop Time Status Admin Albuterol Sulfate 3 ML BID 07/25 1145 AC 07/28 INH 0826 Azithromycin 500 MG DAILY 07/25 1000 AC 07/28 Dextrose/Water 250 ML IV 0931 Budesonide/ 2 PUF BID 07/25 1000 AC 07/28 Formoterol Fumarate INH 0924 Docusate Sodium 100 MG DAILY NEEDED PRN 07/26 1045 AC 07/26 PO 1225 Enoxaparin Sodium 150 MG DAILY 07/26 1017 AC 07/28 SC 0923 Ferrous Sulfate 325 MG DAILY 07/26 1034 AC 07/28 PO 0923 Guaifenesin 600 MG Q12 07/25 1000 AC 07/28 PO 0923 Ipratropium [place] 2.5 ML BID 07/25 1142 AC 07/28 INH 0826 Nystatin 1 NAZARIO TID 07/26 1000 AC 07/28 TOP 0935 Omeprazole 40 MG 1700 07/27 2015 AC 07/27 PO 2100 Omeprazole 40 MG DAILY AC 07/27 0700 DC 07/27 PO 0546 Polyethylene Glycol 17 GM DAILY 07/26 1040 AC 07/27 PO 0755 Prednisone 10 MG DAILY 08/01 1000 AC PO 08/03 0959 Prednisone 20 MG DAILY 07/30 1000 AC PO 08/01 0959 Prednisone 30 MG DAILY 07/28 1000 AC 07/28 PO 09 0959 0923 Prednisone 40 MG DAILY 07/26 1000 DC / PO 07/28 0959 0756 Vital Signs & I&O Last 24 Hrs of Vitals and I&O: Vital Signs Date Time Temp Pulse Resp B/P B/P Pulse O2 O2 Flow FiO2 Mean Ox Delivery Rate 07/28 0849 96 Room Air Room Air 07/28 0800 94 Room Air Room Air 07/28 0639 98.5 102 20 138/82 93 Room Air 07/28 0600 93 Room Air Room Air 07/28 0000 94 Room Air Room Air 07/27 2200 94 Room Air Room Air 07/27 2154 98.8 109 16 116/54 94 Nasal Cannula 07/27 1905 94 Room Air 07/27 1435 98.2 108 20 132/78 93 Nasal 1.0L Cannula 07/27 1400 Room Air Intake & Output 07/28 1600 07/28 0800 07/28 0000 Intake Total 100 Output Total Balance 100 Intake, Oral 100 Exam Other Physical Findings: Generally - Awake, alert Head and neck - normocephalic, atraumatic, EOMI grossly intact Cardiovascular - S1, S2 Lungs - improved rhonchi Abdomen - Bowel sounds positive, soft, non-tender Extremities - trace edema Results Last 24 Hrs of Lab Results: Laboratory Tests 07/28/17 0655: CBC w Diff NO MAN DIFF REQ, RBC 3.38 L, MCV 72.5 L, MCH 22.4 L, MCHC 30.9 L, RDW 18.5 H, MPV 9.0, Gran % 66.2, Lymphocytes % 26.9, Monocytes % 6.4, Eosinophils % 0.3, Basophils % 0.2, Absolute Granulocytes 7.9 H, Absolute Lymphocytes 3.2, Absolute Monocytes 0.8 H, Absolute Eosinophils 0, Absolute Basophils 0 Impression/Plan Impression/Plan Impression/Plan: Impression 61 year old woman * admitted to the ICU secondary to hemodynamic instability secondary to VTE -DVT extending Left CFV to the popliteal vein -noncompressible thrombus proximal left greater saphenous vein -multifocal bilateral pulmonary emboli * 1.3cm RUL nodule - unclear etiology - will require follow up * asthma exacerbation triggered by acute illness * leukocytosis Plan -vascular surgery consultation appreciated - no recs for IVC filter - significant clot burden in both pulmonary and lower extremity vessels - A/C is sufficient -post discharge will require follow up for 1.3cm RUL nodule -TRC/Nebs -prednisone taper as ordered -pt on Advair at home - can resume -s/p zithromax -hematology consultation appreciated - microcytic anemia workup - a/c per heme, outpt anemia workup (colonoscopy) DVT prophylaxis at all times
--- NOTE | 2017-07-28 14:25 | Discharge Summary ---
Visit Information Visit Dates Admission Date: 07/24/17 Discharge Date: 07/28/17 Hospital Course Course Attending Physician: Humberto Watts MD Primary Care Physician: Vahid Stock DO Hospital Course: 61 yo lady with a PMHx of asthma and psoriasis, recently treated for acute bronchitis with antibiotics and steroid with interval improvement but worsened again after about week presented at [facility] with c/o shortness of breath and persistent cough with no fever or chills. Vitals: T max 99.9, heart rate 123, RR 20, blood pressure 123/80 on arrival dropped to 96/56, saturating 95% on 2 L nasal cannula. On exam: Patient in mild respiratory distress, A O 3, cooperative, neck supple, JVD normal, no lymphadenopathy, mucosa moist, no focal neurological deficit, bilateral lower extremity edema +2, no obvious skin rashes or inflammation CVS: S1-S2, RRR. RS: Minimum Wheezing bilaterally, no crackles. Abdomen: Soft, NT, ND , bowel sounds present. Labs: WBC 24.0, hemoglobin 9.6, hematocrit 31.7, platelet 366, sodium 142, potassium 3.4, chloride 97, bicarbonate 28, BUN 8, creatinine 0.8, glucose 126, calcium 9.0, LFT unremarkable, troponin 0.05, proBNP 4740, INR 1.55, d-dimer 1916, influenza negative CXR: 1. Findings are consistent with reactive airways disease or bronchitis. No focal pneumonia. 2. Moderate size retrocardiac hiatal hernia. CTA chest: 1. Multifocal bilateral pulmonary embolism. 2. A nonspecific 1.3 cm right upper lobe nodule. Recommend 3 month follow-up chest CT scan for re-evaluation. 3. [id number] subpleural small opacities in the right middle and lower lobes could represent atelectasis or pulmonary infarct. ECG: Q3 T3 She was diagnosed with a bilateral pulmonary embolism and started on heparin drip. A doppler U/S of LE was obtained which showed deep venous thrombosis extending from the left common femoral vein to the popliteal vein. No provoking factors identified (no estrogen/tobacco/fam hx of clotting disorders,recent immobilaztion, malignancy or long distance travel).Vascular surgery consult was obtained and it was reccomended that patient initially be placed ICU for close hemodynamic monitoring, no surgical intervention was reccoemded at the moment . An echo was obtained which was remarkable for RV dilitation with decreased contractility and moderate to severe pulmonary hypertensio which was consistent with RV strain related to the patient's bilateral pulmonary emboli. Patient remained hemodynamically stable in ICU and on day 4 was downgraded to telemetry. Hematology consult was also obtained who reccomeded atleast 5 day tx with a LMWH prior to transtioning to a NOAC. On day 5, pt was medically stable, her shortness of breath had decreased significantly, she was able to ambulate on room air. She was discharged with 2 days supply of LMWH to complete a 5 day tx course and then start on apixaban (please see medication list for dosing). She was also managed with steroid taper for an asthma exacerbation due to her acute illness. The following issues will require close f/u after discharge: 1. Patient is to f/u with a doppler u/s of left lower extremity to assess interval changes of the clot. This is to be done 2 weeks after discharge, pt given requsition for the study. 2. She will need to f/u with acetylene torch burner for work up for non provoked VTE ( referral provided for Dr Leyva who saw the patient during hospital stay). 3.There was an incidental finding of nonspecific 1.3 cm right upper lobe nodule. Patient will need follow-up chest CT scan for re-evaluation of interval changes, probably in 3 months. 4. She was started on Ferrous sulfate for ALIX and was noted to have not had age appropriate colonoscopy at age 51. A referral was given for Dr Mendenhall (GI) for colonoscopy, this became more relevant with the possibility of malignancy as the cause of VTE. Allergies: Coded Allergies: Penicillins (RASH 07/24/17) Disposition Summary Disposition Principal Diagnosis: Bilateral Pulmonary Embolism Additional Diagnosis: DVT of left leg Asthma Exacerbation Discharge Disposition: home or self care Discharge Instructions General Discharge Information Code Status: Full Code Patient's Diet: regular Patient's Activity: As tolerated Follow-Up Instructions/Appts: PCP within 1 week Hematologsit within 1-2 weeks Colonoscopy LLE U/S doppler in 2 weeks Medications at Discharge Discharge Medications: Continue taking these medications: Ipratropium/Albuterol Sulfate (Iprat-Albut 0.5-3(2.5) MG/3 Ml) 0.5 MG-3 MG (2.5 MG BASE)/3 ML AMPUL.NEB Qty = 120 Comments: Last Taken:07/28/17 Time:9:26A.M Cetirizine HCl (Zyrtec) 10 MG TABLET 1 Tablet ORAL DAILY Comments: NOT GIVEN THIS ADMISSION Omeprazole (Omeprazole) 20 MG TABLET. 1 Tablet ORAL DAILY Comments: Last Taken:07/27/17 Time:9P.M Ipratropium [place] (Ipratropium [place]) 0.2 MG/ML (0.02 %) SOLUTION 1 Vial Inhale Solution 4 TIMES A DAY Comments: Last Taken:07/28/17 Time:9:26A.M Fluticasone/Salmeterol (Advair 250-50 Diskus) 250 MCG-50 MCG/DOSE BLST.W.DEV 1 Puff Inhale through mouth TWICE DAILY Comments: OT GIVEN THIS ADMISSION Start taking the following new medications: Apixaban (Eliquis) 5 MG TABLET 5 Milligram ORAL SEE INSTRUCTIONS Qty = 74 Refills = 2 Instructions: starting on 07/31/17 TAKE 10 MG BID FOR 1 WEEK, THEN 5MG BID THEREAFTER (PLEASE DISPENSE 30 DS) Comments: NOT STARTED IN HOSPITAL Enoxaparin Sodium (Lovenox) 100 MG/ML SYRINGE 150 Milligram Inject into fatty tissue DAILY Qty = 2 No Refills Instructions: INJECT 150MG DAILY FOR 2 DAYS (07/29, 07/30). Comments: Last Taken:07/28/17 Time:9:24A.M Prednisone (Prednisone) 10 MG TABLET 30 Milligram ORAL DAILY Qty = 2 No Refills Instructions: TAKE 30 MG DAILY FOR 2 DAYS. Comments: Last Taken:07/28/17 Time:9:24A.M Ferrous Sulfate (Ferrous Sulfate) 325 MG (65 MG IRON) TABLET. 325 Milligram ORAL DAILY Qty = 30 No Refills Comments: Last Taken:07/28/17 Time:9:24A.M Copies To: Autumn CARLOS,[facility]; Vahid Stock DO, MD Review Statement Documenting Attending: Humberto Watts MD Other Findings: Discharged in stable condition.
== END 2017-07-28 13:30 | DRG 176 ==
LOC: ERH 14:29 → CRI 20:39 → ERHI 20:39 → ENRESERV 07-25 03:25 → CRI 07-25 03:39 → 1NO 07-26 20:43 → ENPENDDIS 07-28 11:09 → ENTRNSPT 07-28 12:37 → EDTRNSPT 07-28 12:47 → EDTRNSPTSTS 07-28 12:47 → CMPTRNSPT 07-28 13:03 → 1NO 07-28 13:30
PROVIDERS: Dermatology; Internal Medicine; Internal Medicine Critical Care Medicine; Internal Medicine Endocrinology, Diabetes & Metabolism; Physician Assistant Medical; Student in an Organized Health Care Education/Training Program
DX: I26.99 Other pulmonary embolism without acute cor pulmonale (principal); I27.20 Pulmonary hypertension, unspecified; J45.901 Unspecified asthma with (acute) exacerbation; I82.402 Acute embolism and thrombosis of unspecified deep veins of left lower extremity; L40.9 Psoriasis, unspecified; Z79.51 Long term (current) use of inhaled steroids; Z79.52 Long term (current) use of systemic steroids; Z88.0 Allergy status to penicillin; R00.0 Tachycardia, unspecified; K21.9 Gastro-esophageal reflux disease without esophagitis; E87.6 Hypokalemia; Z90.710 Acquired absence of both cervix and uterus; Z83.6 Family history of other diseases of the respiratory system; Z80.1 Family history of malignant neoplasm of trachea, bronchus and lung; Z83.3 Family history of diabetes mellitus; Z82.49 Family history of ischemic heart disease and other diseases of the circulatory system; J40 Bronchitis, not specified as acute or chronic; K44.9 Diaphragmatic hernia without obstruction or gangrene; D50.9 Iron deficiency anemia, unspecified; R91.1 Solitary pulmonary nodule; D72.829 Elevated white blood cell count, unspecified
CPT/HCPCS: 1NP; CCU; ERO; 36415; 71046; 82436; 87070; 87071; 87804; 87804-59; 93005; 93010; 93306; 93970; 96360; J0456; J1644; J1650; J2920; J3490; J7060; J7512